=== PATIENT | female | born 1945 | race Caucasian/White ===

== ENCOUNTER 2017-02-20 08:14 | Inpatient (IN) | payer MEDICARE, MEDICAID ==
[2017-02-20] VITALS (9 sets, daily range): BP systolic 148–227; BP diastolic 72–100; PULSE 79–92; RESP 18–20; TEMP 98.1–98.6; O2SAT 90–96
[~2017-02-20] VITALS: Ht 172.7 cm; Wt 134.0 kg
[~2017-02-20 08:14] MED LIST: ALBU0.08 NEB; ASPI-110 PO; DIPH2.5T14 PO; HYDR-3534 PO; K-TA10TA PO; LEVO150T7 PO; OMEP20TA PO; PLAV75TA29 PO; POTA-243 PO; SYMB80AE INH; TIZA2CAP3 PO; TRIA.1%T TOP; TRIA0.5O TOPICAL; ZOFR4TAB PO; ZOFR4TAB3 SL; ZOSTINJ SQ
[2017-02-20] MEDS ORDERED: ONDANSETRON HCL 4 MG/2 ML VIAL IVP ONE (08:45)
[2017-02-20] MEDS ORDERED: LABETALOL HCL 100 MG/20 ML VIAL IV PUSH ONE (08:45)
[2017-02-20] MEDS ORDERED: SODIUM CHLORIDE 0.9% FLUSH 10 ML FLUSH IVF PRN (08:45)
[2017-02-20] MEDS ORDERED: MECLIZINE HCL 25 MG TAB PO ONE (08:45)
[2017-02-20 08:59] LABS: AUTOMATED NEUTROPHIL # 2.6 TH/MM3 (1.8-7.7); BASOPHIL # 0.4 TH/MM3 (0-0.2); BASOPHIL % 6.7 % (0.0-2.0); EOSINOPHIL # 0.2 TH/MM3 (0-0.4); EOSINOPHIL % 3.7 % (0.0-4.0); HEMATOCRIT 43.2 % (35.0-46.0); LYMPH % 35.2 % (9.0-44.0); MEAN CELL VOLUME 84.9 FL (80.0-100.0); MEAN CORPUSCULAR HEMOGLOBIN 29.1 PG (27.0-34.0); MEAN CORPUSCULAR HGB CONC 34.3 % (32.0-36.0); NEUT % 45.4 % (16.0-70.0); PLATELET COUNT 196 TH/MM3 (150-450); RED BLOOD COUNT 5.09 MIL/MM3 (4.00-5.30); RED CELL DISTRIBUTION WIDTH 14.2 % (11.6-17.2); WHITE BLOOD COUNT 5.7 TH/MM3 (4.0-11.0)
[2017-02-20 09:00] LABS: HEMO FLAGS AUTO DIFF
[2017-02-20 09:05] LABS: APTT (PATIENT) 29.1 SEC (24.3-30.1); PROTHROMBIN TIME - PATIENT 10.7 SEC (9.8-11.6)
[2017-02-20 09:19] LABS: ANION GAP 8 MEQ/L (5-15); AST (GOT) 21 U/L (15-37); BICARBONATE 27.3 MEQ/L (21.0-32.0); BLOOD UREA NITROGEN 11 MG/DL (7-18); CHLORIDE 103 MEQ/L (98-107); GLOMERULAR FILTRATION RATE 48 ML/MIN (>89); POTASSIUM 3.6 MEQ/L (3.5-5.1); SODIUM (NA) 138 MEQ/L (136-145)
[2017-02-20 09:23] LABS: ALKALINE PHOSPHATASE 96 U/L (45-117); ALT (GPT) 19 U/L (10-53); TOTAL BILIRUBIN ADULT 0.9 MG/DL (0.2-1.0)
[2017-02-20 09:24] LABS: CREATINE KINASE 39 U/L (26-192)
[2017-02-20] MEDS ORDERED: RESP: ALBUTEROL 2.5 MG/IPRATROPIUM 0.5 MG NEB (SCH) NEB ONE (09:30)
--- NOTE | 2017-02-20 10:03 | RADRPT ---
EXAM DATE/TIME: 02/20/2017 09:15 [facility] COMPARISON: CHEST SINGLE AP, April 30, 2016, 20:13. INDICATIONS : Shortness of breath. MEDICAL HISTORY : Hypertension. Chronic obstructive pulmonary disease. Emphysema. Congestive heart failure. Stroke. Uterine cancer. SURGICAL HISTORY : Angioplasty. Cardiac cath. ENCOUNTER: Initial ACUITY: 1 week PAIN SCORE: 0/10 LOCATION: Bilateral chest FINDINGS: A single view of the chest demonstrates the lungs to be symmetrically aerated without evidence of mas s, infiltrate or effusion. The cardiomediastinal contours are unremarkable. Osseous structures are intact. CONCLUSION: 1. No acute cardiopulmonary disease. Bean Tello MD on February 20, 2017 at 10:01 Board Certified Radiologist. This report was verified electronically.
--- NOTE | 2017-02-20 10:04 | RADRPT ---
EXAM DATE/TIME: 02/20/2017 09:50 [facility] COMPARISON: No previous studies available for comparison. INDICATIONS : Dizziness, headache for 1 day. RADIATION DOSE: 36.04 CTDIvol (mGy) MEDICAL HISTORY : Stroke. Hypothyroidism. Cardiovascular diseaseHypertension, Uterine cancer SURGICAL HISTORY : Appendectomy. Cholecystectomy. ENCOUNTER: Initial ACUITY: 1 day PAIN SCALE: 6/10 LOCATION: cranial TECHNIQUE: Multiple contiguous axial images were obtained of the head. Using automated exposure control and adj ustment of the mA and/or kV according to patient size, radiation dose was kept as low as reasonably a chievable to obtain optimal diagnostic quality images. DICOM format image data is available electro nically for review and comparison. FINDINGS: CEREBRUM: The ventricles are normal. There is minimal periventricular white matter low attenuation. No evidenc e of midline shift, mass lesion, hemorrhage or acute infarction. No extra-axial fluid collections ar e seen. POSTERIOR FOSSA: The cerebellum and brainstem demonstrate no acute finding. The 4th ventricle is midline. The cerebe llopontine angle is unremarkable. EXTRACRANIAL: Visualized sinuses are clear. SKULL: The calvaria is intact. No evidence of skull fracture. CONCLUSION: No acute intracranial abnormality is identified. Abiodun Zavala MD on February 20, 2017 at 10:00 Board Certified Radiologist. This report was verified electronically.
[2017-02-20 10:13] LABS: BANDS 4 % (0-6); BASOPHILS 1 % (0-2); EOSINOPHILS 5 % (0-4); NEUTROPHIL # MANUAL DIFF 3.3 TH/MM3 (1.8-7.7); PLATELET ESTIMATE SMEAR NORMAL (NORMAL); PLATELET MORPHOLOGY NORMAL (NORMAL); POLYS (SEG NEUTROPHILS) 54 % (16-70); SCAN/DIFF FINAL DIFF MANUAL; WBC DIFF SAMPLE 100
[2017-02-20] MEDS ORDERED: SODIUM CHLORID 0.9% 500 ML INJ 500 ML IV ONE (10:45)
[2017-02-20] MEDS ORDERED: METOCLOPRAMIDE INJ 10 MG in SODIUM CHLORIDE 0.9% INJ 50 ML IV ONE (10:45)
--- NOTE | 2017-02-20 11:43 | PD ---
HPI Chief Complaint: Respiratory Distress Time Seen by Provider: 08:35 Travel History International Travel<30 days: No Contact w/Intl Traveler<30days: No Traveled to known affect area: No History of Present Illness HPI Patient is a 71-year-old female brought in by EMS with multiple complaints. She says she has been feeling very dizzy, she is unsteady on her feet. She says she's had some nausea and vomiting due to the dizziness. She says this is been going on for a few days. She also has some shortness of breath. She also complains of weakness her left side. She has history of multiple strokes in the past. She cannot tell me exactly when everything started. She denies any chest pain. PFSH Past Medical History Hx Anticoagulant Therapy: Yes Arthritis: Yes Heart Rhythm Problems: No Cancer: Yes (UTERINE CA) Cardiac Catheterization: Yes Cardiovascular Problems: Yes High Cholesterol: Yes Chest Pain: Yes Congestive Heart Failure: Yes Cerebrovascular Accident: Yes (X 3) Coronary Artery Disease: Yes Diabetes: No Diminished Hearing: No Gastrointestinal Disorders: Yes GERD: Yes Genitourinary: No Heparin Induced Thrombocytopen: No Hypertension: Yes Musculoskeletal: Yes (OSTEOPOROSIS, DEGENERATIVE DISK DISEASE) Neurologic: Yes Psychiatric: No Reproductive: Yes Respiratory: Yes (EMPHYSEMA) Integumentary: Yes (TO BOTH FEET-FISSURES) Myocardial Infarction: Yes Thyroid Disease: Yes (HYPO) ?: Not Menopausal: Yes : 12 Para: 5 Miscarriage: 7 Past Surgical History Appendectomy: Yes Cardiac Surgery: Yes (ANGIOPLASTY X2) Cholecystectomy: Yes Coronary Artery Bypass Graft: No Coronary Stent: Yes Gynecologic Surgery: Yes (UTERINE CA 1998 HYST) Hysterectomy: Yes Other Surgery: Yes Social History Alcohol Use: No Tobacco Use: No Substance Use: No Allergies-Medications (Allergen,Severity, Reaction): Coded Allergies: Codeine (Verified Allergy, Severe, 12/25/16) Contrast Media (Verified Allergy, Severe, 12/25/16) Iodine (Verified Allergy, Severe, 12/25/16) Penicillin (Verified Allergy, Severe, 12/25/16) Shellfish (Verified Allergy, Severe, Anaphylaxis, 02/20/17) Egg Yolk (Verified Allergy, Intermediate, Hives, 02/20/17) Tuna (Verified Allergy, Intermediate, Hives, 02/20/17) Levaquin (Verified Allergy, Unknown, Shortness of Breath, 12/25/16) *MDRO Multi-Drug Resistant Organism (Verified Adverse Reaction, Unknown, ) ESBL+Klebsiella Pneumoniae (urine-04/30/16) Reported Meds & Prescriptions Reported Meds & Active Scripts Active Levothyroxine (Levothyroxine Sodium) 150 Mcg Tab 150 Mcg PO DAILY Triamcinolone Topical 0.5 % Oint 1 Applic TOPICAL BID Diphenoxylate-Atropine 2.5-0.025 Mg Tab 1 Tab PO Q6H PRN Plavix (Clopidogrel Bisulfate) 75 Mg Tab 75 Mg PO DAILY K-Tab (Potassium Chloride) 10 Meq Tab 10 Meq PO BID Omeprazole 20 Mg Tab 20 Mg PO HS Reported Tizanidine (Tizanidine HCl) 2 Mg Cap 2 Mg PO BID Lortab (Hydrocodone-Acetaminophen) 7.5-325 Mg Tab 1 Tab PO TID PRN Symbicort Inh (Budesonide/Formoterol Fumarate) 80-4.5 Mcg/Act Aero 2 Puff INH Q12HR Aspirin 81 (Aspirin) 81 Mg Tabdr 81 Mg PO DAILY Albuterol Neb (Albuterol Sulfate) 2.5 Mg/3 Ml Neb 2.5 Mg NEB Q4HR NEB PRN Review of Systems Except as stated in HPI: all other systems reviewed are Neg General / Constitutional: No: Fever, Chills Eyes: No: Blurred Vision HENT: Positive: Vertigo, No: Headaches Cardiovascular: No: Chest Pain or Discomfort Respiratory: Positive: Shortness of Breath Gastrointestinal: Positive: Nausea, Vomiting, No: Abdominal Pain Musculoskeletal: Positive: Edema Skin: No Rash, No Change in Pigmentation Neurologic: Positive: Weakness Physical Exam Narrative GENERAL: Awake and alert, in no acute distress. SKIN: Focused skin assessment warm/dry. HEAD: Atraumatic. Normocephalic. EYES: Pupils equal and round. No scleral icterus. Extraocular movements intact. ENT: Mucous membranes pink and moist. NECK: Trachea midline. No JVD. CARDIOVASCULAR: Regular rate and rhythm. No murmur appreciated. RESPIRATORY: No accessory muscle use. Decreased breath sounds. Breath sounds equal bilaterally. GASTROINTESTINAL: Abdomen soft, non-tender, nondistended. MUSCULOSKELETAL: No obvious deformities. No clubbing. No cyanosis. No edema. NEUROLOGICAL: Awake and alert. No obvious cranial nerve deficits. Left arm strength 2 out of 5, left leg strength 2 out of 5,. Normal speech. PSYCHIATRIC: Appropriate mood and affect; insight and judgment normal. Data Data Last Documented VS Vital Signs Date Time Temp Pulse Resp B/P Pulse Ox O2 Delivery O2 Flow Rate FiO2 02/20/17 09:20 79 20 153/72 02/20/17 08:53 95 02/20/17 08:20 98.6 Orders Electrocardiogram (02/20/17 08:36) Complete Blood Count With Diff (02/20/17 08:36) Comprehensive Metabolic Panel (02/20/17 08:36) B-Type Natriuretic Peptide (02/20/17 08:36) Ckmb (Isoenzyme) Profile (02/20/17 08:36) Troponin I (02/20/17 08:36) Act Partial Throm Time (Ptt) (02/20/17 08:36) Prothrombin Time / Inr (Pt) (02/20/17 08:36) Urinalysis - C+S If Indicated (02/20/17 08:36) Ua Includes Microscopic (02/20/17 08:36) Chest, Single Ap (02/20/17 08:36) Ct Brain W/O Iv Contrast(Rout) (02/20/17 08:36) Ecg Monitoring (02/20/17 08:36) Iv Access Insert/Monitor (02/20/17 08:36) Oximetry (02/20/17 08:36) Meclizine (Antivert) (02/20/17 08:45) Ondansetron Inj (Zofran Inj) (02/20/17 08:45) Sodium Chloride 0.9% Flush (Ns Flush) (02/20/17 08:45) Labetalol Inj (Trandate Inj) (02/20/17 08:45) Albuterol-Ipratropium Neb (Duoneb Neb) (02/20/17 09:30) Metoclopramide Inj (Reglan Inj) (02/20/17 10:45) Sodium Chlorid 0.9% 500 Ml Inj (Ns 500 M (02/20/17 10:45) Mra Carotids W Contrast (02/20/17 ) Mra Brain W/O Contrast (Cow) (02/20/17 ) Admit Order (Ed Use Only) (02/20/17 ) Mri Brain W/O Contrast (02/20/17 ) Labs Laboratory Tests Test 02/20/17 08:40 White Blood Count 5.7 TH/MM3 Red Blood Count 5.09 MIL/MM3 Hemoglobin 14.8 GM/DL Hematocrit 43.2 % Mean Corpuscular Volume 84.9 FL Mean Corpuscular Hemoglobin 29.1 PG Mean Corpuscular Hemoglobin 34.3 % Concent Red Cell Distribution Width 14.2 % Platelet Count 196 TH/MM3 Mean Platelet Volume 8.3 FL Neutrophils (%) (Auto) 45.4 % Lymphocytes (%) (Auto) 35.2 % Monocytes (%) (Auto) 9.0 % Eosinophils (%) (Auto) 3.7 % Basophils (%) (Auto) 6.7 % Neutrophils # (Auto) 2.6 TH/MM3 Lymphocytes # (Auto) 2.0 TH/MM3 Monocytes # (Auto) 0.5 TH/MM3 Eosinophils # (Auto) 0.2 TH/MM3 Basophils # (Auto) 0.4 TH/MM3 CBC Comment AUTO DIFF Differential Total Cells 100 Counted Neutrophils % (Manual) 54 % Band Neutrophils % 4 % Lymphocytes % 32 % Monocytes % 4 % Eosinophils % 5 % Basophils % 1 % Neutrophils # (Manual) 3.3 TH/MM3 Differential Comment FINAL DIFF MANUAL Platelet Estimate NORMAL Platelet Morphology Comment NORMAL Red Cell Morphology Comment NORMAL Prothrombin Time 10.7 SEC Prothromb Time International 1.0 RATIO Ratio Activated Partial 29.1 SEC Thromboplast Time Sodium Level 138 MEQ/L Potassium Level 3.6 MEQ/L Chloride Level 103 MEQ/L Carbon Dioxide Level 27.3 MEQ/L Anion Gap 8 MEQ/L Blood Urea Nitrogen 11 MG/DL Creatinine 1.11 MG/DL Estimat Glomerular Filtration 48 ML/MIN Rate Random Glucose 121 MG/DL Hemoglobin A1c 5.5 % Calcium Level 10.3 MG/DL Total Bilirubin 0.9 MG/DL Aspartate Amino Transf 21 U/L (AST/SGOT) Alanine Aminotransferase 19 U/L (ALT/SGPT) Alkaline Phosphatase 96 U/L Total Creatine Kinase 39 U/L Troponin I LESS THAN 0.02 NG/ML B-Type Natriuretic Peptide 76 PG/ML Total Protein 7.2 GM/DL Albumin 3.9 GM/DL Triglycerides Level 110 MG/DL Cholesterol Level 195 MG/DL LDL Cholesterol 107 MG/DL HDL Cholesterol 65.7 MG/DL Cholesterol/HDL Ratio 2.96 RATIO [facility] Decision Making Medical Screen Exam Complete: Yes Emergency Medical Condition: Yes Medical Record Reviewed: Yes Interpretation(s) ECG shows normal sinus rhythm, no ST elevation or depression Differential Diagnosis Stroke versus electrolyte abnormality versus sepsis Narrative Course Patient is a 71-year-old female comes in with multiple complaints. Exam shows weakness on the left side that appears to be new, however onset is unknown. CT head performed shows no acute abnormalities. IV established, labs sent. Patient connected to a cardiac technician. Patient given labetalol blood pressure. Given meclizine, given Reglan, given Zofran. She is reports improvement of her dizziness. Dr. Wall of neurology consulted, who suggests. Workup. MRI and MRA of the brain and carotid arteries ordered. Patient will be admitted for further management. Diagnosis Primary Impression: Stroke Qualified Code: I63.9 - Cerebrovascular accident (CVA), unspecified mechanism Additional Impression: Vertigo Admitting Information Admitting Physician Requests: Admit Condition: Stable Eunice Mosquera MD Feb 20, 2017 11:43
--- NOTE | 2017-02-20 11:58 | HHI.HP ---
[facility] Service Family Medicine Primary Care Physician Katelynn Torrez MD Admission Diagnosis CVA, COPD Diagnoses: International Travel<30 Days: No Contact w/Intl Traveler<30days: No Known Affected Area: No History of Present Illness 71 year old female with past history of ischemic stroke x3, COPD, hypothyroidism , HTN presented to the ED for left sided weakness. Patient states that she has been feeling dizzy for the past few weeks, occasionally feeling as though the room was spinning around her. At 2 AM this morning (02/20/17) the patient states the spinning was so bad it took 15 minutes to walk from the bed to bathroom. She also noted at that time a change in speech pattern. cold sweats, nausea, dizziness (everything spinning). She took an aspirin and went back to bed. Waking up this morning she continued to have the symptoms, but also noted weakness in her left arm and leg. She did not notice any facial droop or slurred words. She does not a slight change in her speech, something she is hypervigilant about, because she had to relearn how to speak following her last stroke. She reports no vomiting, fall, LOC, fever, change in urinary habits, abdominal pain, chest pain, blurry vision, diplopia. She has had diarrhea which was black for past couple days, amodium AD taken. Currently has some confusion, headache in lower base of head which started this morning, difficulty speaking, weakness on left side. Review of Systems Constitutional: COMPLAINS OF: Diaphoretic episodes, Chills, Dizziness, DENIES : Fatigue, Fever, Weight gain, Weight loss Endocrine: DENIES: Heat/cold intolerance, Polydipsia, Polyuria Eyes: DENIES: Blurred vision, Diplopia, Eye inflammation, Eye pain, Vision loss , Photosensitivity, Double Vision Ears, nose, mouth, throat: DENIES: Nasal discharge, Throat pain, Hoarseness, Running Nose, Epistaxis, Sinus Pain Respiratory: COMPLAINS OF: Wheezing ([place]), DENIES: Apneas, Cough, Snoring , Hemoptysis, Shortness of breath Cardiovascular: DENIES: Chest pain, Palpitations, Syncope, Dyspnea on Exertion , PND Gastrointestinal: COMPLAINS OF: Black stools, DENIES: Abdominal pain, Bloody stools, Constipation, Nausea, Vomiting Genitourinary: DENIES: Urinary frequency, Urinary incontinence, Urgency, Dysuria, Nocturia Musculoskeletal: DENIES: Joint pain, Muscle aches, Stiffness, Joint Swelling, Back pain, Neck pain Integumentary: DENIES: Pruritus, Rash Hematologic/lymphatic: DENIES: Bruising Immunologic/allergic: DENIES: Eczema Neurologic: COMPLAINS OF: Abnormal gait, Headache, Localized weakness, Speech Problems, Poor Balance, DENIES: Paresthesias, Seizures, Tremor Psychiatric: COMPLAINS OF: Confusion Past Family Social History Past Medical History Past medical, surgical, family and social history obtained from EMR and confirmed with patient COPD Ischemic Stroke x 3 1990 Acute VT CAD - no longer on statin due to side effects Hypothyroidism HTN GERD IBS- predominant diarrhea "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" -- followed by pain management 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 , 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, 1 ectopic requiring 5 Vaginal deliveries, Full Term, LMP: 1997 Past Surgical History 1986, 2010 - Cardiac Catheterization x 2 (1986, 2010) - no stents placed 1998 Hysterectomy (uterus, ovaries) for uterine cancer - unsure if cervix was removed as well 1964 - Cholecystectomy Allergies: Coded Allergies: Codeine (Verified Allergy, Severe, 12/25/16) Contrast Media (Verified Allergy, Severe, 12/25/16) Iodine (Verified Allergy, Severe, 12/25/16) Penicillin (Verified Allergy, Severe, 12/25/16) Shellfish (Verified Allergy, Severe, Anaphylaxis, 02/20/17) Egg Yolk (Verified Allergy, Intermediate, Hives, 02/20/17) Tuna (Verified Allergy, Intermediate, Hives, 02/20/17) Levaquin (Verified Allergy, Unknown, Shortness of Breath, 12/25/16) *MDRO Multi-Drug Resistant Organism (Verified Adverse Reaction, Unknown, ) ESBL+Klebsiella Pneumoniae (urine-04/30/16) Active Ordered Medications Current Medications Medications (Trade) Dose Ordered Sig/Mary Route Start Time Stop Time Status Last Admin (NS Flush) 2 ml UNSCH PRN IVF 02/20/17 08:45 (NS Flush) 2 ml UNSCH PRN IV FLUSH 02/20/17 12:30 (NS Flush) 2 ml BID IV FLUSH 02/20/17 21:00 (Zofran Inj) 4 mg Q6H PRN IVP 02/20/17 12:30 (Narcan Inj) 0.4 mg UNSCH PRN IV 02/20/17 12:30 (Symbicort 80-4.5 Mcg Inh) 2 puff Q12HR INH 02/20/17 12:45 (Plavix) 75 mg DAILY PO 02/21/17 09:00 Levothyroxine Sodium 150 mcg 150 mcg DAILY PO 02/21/17 09:00 (NS 1000 ml Inj) 1,000 ml @ 75 mls/hr [id number] IV 02/20/17 14:49 02/20/17 15:23 Family History FMHx Mother, unknown - patient adopted Father, unknown - patient adopted Social History Lives in [place]. Retired and on disability. 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 SKIN: No rashes, ecchymoses or lesions. Cool and dry. HEAD: Atraumatic. Normocephalic. No temporal or scalp tenderness. EYES: Pupils equal round and reactive. Extraocular motions intact. No scleral icterus. No injection or drainage. ENT: Nose without bleeding, purulent drainage or septal hematoma. Throat without erythema, tonsillar hypertrophy or exudate. Uvula midline. Airway patent. NECK: Trachea midline. No JVD or lymphadenopathy. Supple, nontender, no meningeal signs. CARDIOVASCULAR: Regular rate and rhythm without murmurs, gallops, or rubs. RESPIRATORY: Clear to auscultation. Breath sounds equal bilaterally. No wheezes , rales, or rhonchi. GASTROINTESTINAL: Abdomen soft, non-tender, nondistended. No hepato-splenomegaly , or palpable masses. No guarding. MUSCULOSKELETAL: Extremities without clubbing, cyanosis, or edema. No joint tenderness, effusion, or edema noted. No calf tenderness. NEUROLOGICAL: Awake and alert. Cranial nerves II through XII intact. Motor and sensory grossly within normal limits.5/5 in RUE, 4/5 in LUE, 5/5 in RLE, 3/5 in LLE. Normal speech. Laboratory Laboratory Tests Test 02/20/17 08:40 White Blood Count 5.7 Red Blood Count 5.09 Hemoglobin 14.8 Hematocrit 43.2 Mean Corpuscular Volume 84.9 Mean Corpuscular Hemoglobin 29.1 Mean Corpuscular Hemoglobin 34.3 Concent Red Cell Distribution Width 14.2 Platelet Count 196 Mean Platelet Volume 8.3 Neutrophils (%) (Auto) 45.4 Lymphocytes (%) (Auto) 35.2 Monocytes (%) (Auto) 9.0 Eosinophils (%) (Auto) 3.7 Basophils (%) (Auto) 6.7 Neutrophils # (Auto) 2.6 Lymphocytes # (Auto) 2.0 Monocytes # (Auto) 0.5 Eosinophils # (Auto) 0.2 Basophils # (Auto) 0.4 CBC Comment AUTO DIFF Differential Total Cells 100 Counted Neutrophils % (Manual) 54 Band Neutrophils % 4 Lymphocytes % 32 Monocytes % 4 Eosinophils % 5 Basophils % 1 Neutrophils # (Manual) 3.3 Differential Comment FINAL DIFF MANUAL Platelet Estimate NORMAL Platelet Morphology Comment NORMAL Red Cell Morphology Comment NORMAL Prothrombin Time 10.7 Prothromb Time International 1.0 Ratio Activated Partial 29.1 Thromboplast Time Sodium Level 138 Potassium Level 3.6 Chloride Level 103 Carbon Dioxide Level 27.3 Anion Gap 8 Blood Urea Nitrogen 11 Creatinine 1.11 Estimat Glomerular Filtration 48 Rate Random Glucose 121 Calcium Level 10.3 Total Bilirubin 0.9 Aspartate Amino Transf 21 (AST/SGOT) Alanine Aminotransferase 19 (ALT/SGPT) Alkaline Phosphatase 96 Total Creatine Kinase 39 Troponin I LESS THAN 0.02 B-Type Natriuretic Peptide 76 Total Protein 7.2 Albumin 3.9 Result Diagram: 02/20/1783902/20/17839 Imaging Last [address] 02/20/17835 Signed Impressions: Service Date/Time: February 09:50 - CONCLUSION: No acute intracranial abnormality is identified. Abiodun Zavala MD Chest X-Ray 02/20/17835 Signed Impressions: Service Date/Time: February 09:15 - CONCLUSION: 1. No acute cardiopulmonary disease. Bean Tello MD Assessment and Plan Assessment and Plan 71 year old female with past history of CVA x3 who presented with acute onset left sided weakness. Head CT shows no acute changes, awaiting MRI Code Status Full Problem List: (1) Left-sided weakness Status: Acute Plan: History of 3 strokes, with self reported change in speech, although seemingly normal on exam -Neurology consulted - CT head without acute changes - F/U MRI - ASA 325 given - F/U A1C - F/U Speech, OT, PT (2) COPD (chronic obstructive pulmonary disease) Status: Acute Plan: - symbicort Q12 - Duoneb treatments Q6 - Albuterol Q2 PRN (3) Hypothyroidism Status: Acute Plan: History of hypothyroidism - Continue home medications - Synthroid 150mcg (4) Hypercholesteremia Status: Acute Plan: Currently has hypercholesterolemia on labs - Will not start on statin at this time due to patient reported adverse reaction to statins (5) FEN Status: Acute Plan: Fluids - Maintenance fluids Electrolytes - Monitor and correct as needed Nutrition - Currently NPO PPX -On SCDS, will consider chemical PPX following MRI Physician Certification 2 Midnight Certification Type: Admission for Inpatient Services Order for Inpatient Services The services are ordered in accordance with Medicare regulations or non- Medicare payer requirements, as applicable. In the case of services not specified as inpatient-only, they are appropriately provided as inpatient services in accordance with the 2-midnight benchmark. Estimated LOS (days): 2 2 days is the estimated time the patient will need to remain in the hospital, assuming treatment plan goals are met and no additional complications. Post-Hospital Plan: Not yet determined Aden Patino MD R1 Feb 20, 2017 11:58
[2017-02-20 12:14] LABS: BACTERIA, URINE MANY /hpf; BLOOD, URINE TRACE (NEG); COMMENT (UR) CULTURE INDICATED; CULTURE IF INDICATED CULTURE INDICATED; GLUCOSE,URINE NEG (NEG); HYALINE CAST, URINE 2 /lpf (RARE); KETONE, URINE NEG (NEG); NITRITE,URINE POS (NEG); PH, URINE 5.5 (5.0-8.5); SQUAMOUS EPITHELIAL CELL URINE 1 /hpf (0-5); URINE COLOR YELLOW (YELLW/STRAW)
[2017-02-20] MEDS ORDERED: SODIUM CHLOR 0.9% 1000 ML INJ 1,000 ML IV SCH (12:24)
[2017-02-20] MEDS ORDERED: ONDANSETRON HCL 4 MG/2 ML VIAL IVP PRN (12:30)
[2017-02-20] MEDS ORDERED: NALOXONE HCL 0.4 MG/ML AMP IV PRN (12:30)
[2017-02-20] MEDS ORDERED: SODIUM CHLORIDE 0.9% FLUSH 10 ML FLUSH IV FLUSH PRN (12:30)
[2017-02-20] MEDS ORDERED: LORazepam 2 MG/ML VIAL IV PUSH ONE (12:45)
[2017-02-20] MEDS ORDERED: RESP: ALBUTEROL 2.5 MG/3 ML NEB (PRN) NEB (12:45)
[2017-02-20] MEDS ORDERED: ASPIRIN 81 MG CHEW TAB CHEW ONE (12:45)
[2017-02-20 13:56] LABS: HDL CHOLESTEROL 65.7 MG/DL (40.0-60.0); LDL CHOLESTEROL 107 MG/DL (0-99)
[2017-02-20] MEDS: SODIUM CHLOR 0.9% 1000 ML INJ 1,000 ML IV SCH (15:23)
[2017-02-20] MEDS: RESP: ALBUTEROL 2.5 MG/IPRATROPIUM 0.5 MG NEB (SCH) NEB ×2 (16:08→20:47)
[2017-02-20 16:34] LABS: HEMOGLOBIN A1a 0.8 %; HEMOGLOBIN A1b 1.8 %; HEMOGLOBIN Ao 85.4 %; HEMOGLOBIN P3 3.7 %
--- NOTE | 2017-02-20 17:02 | MB ---
cc: [facility] DATE OF CONSULTATION 02/20/17 HISTORY OF PRESENT ILLNESS A 71-year-old right-handed woman with a history of hypertension, angioplasty, atrial fibrillation remotely on Plavix and a baby aspirin a day, COPD, hypothyroidism, GERD, uterine cancer many years ago. She tells me she had three strokes one in 1997 with left-sided weakness, another in 1998 and 2000 after daughter , all with left-sided weakness from which she has had 75% recovery. For the last week or two, she has felt some imbalance and vertigo on and off, some increased weakness in the left leg, a headache, some chest pain also. This morning she woke up and had significant vertigo and some tingling in the left arm which was before the vertigo had started and then she came into the hospital. REVIEW OF SYSTEMS She denies any diabetes, hypercholesterolemia, coronary artery bypass graft, renal or hepatic disease, lupus, ulcer, cancer. known seizure. SOCIAL HISTORY Not a smoker or drinker, lives with her son. FAMILY HISTORY Negative for cancer seizure, stroke. ALLERGIES CODEINE CONTRAST IODINE PENICILLIN LEVAQUIN. MEDICATIONS 1. Thyroid medicine 2. Diphenoxylate 3. Plavix 4. Potassium 5. Omeprazole 6. Tizanidine 7. Lortab 8. Symbicort 9. Aspirin 81 10. Nebulizers PHYSICAL EXAMINATION Afebrile, 89, 18, 169/81. Highest blood pressure is 227/100. NECK: There were no carotid bruits. HEART: Regular rhythm. I did not detect a murmur. She is somewhat obese. Pupils are equal. Visual harden are full. Extraocular movements intact without nystagmus. Face is symmetric, normal sensation. Tongue was midline. There was a minimal left drift. She had a little bit of a tremor in the left upper extremity but best strength on the left upper and lower extremities was normal as it was on the right upper and lower extremities. Toes are downgoing bilaterally. DTRs are trace throughout. Pinprick was intact throughout except with decrease in the feet bilaterally slightly as was vibratory sense in the left foot a little decreased. She is not ataxic on [id number] or toe to finger, but she is not able to lift the left leg quite as well off the bed as the right leg. LABORATORY DATA CBC is normal. She had a history of abnormal ABG about a year ago. Had a pH of 7.31, pAO2 of 30. Basic metabolic profile is normal. Lets normal. CPK, troponin, albumin normal. LDL is 107. B12 was normal back in 2008. TSH was normal at that time. UA on this admission - large amount of leuko esterase, 27 white cells. Coags normal. IMAGING STUDIES MRI is pending. CAT scan of the brain read as negative. Review of those films - I do not see any major abnormality. IMPRESSION Vertigo possibly peripheral vestibulopathy. She has had some chest pain, however, and a history of CAD. We will have cardiology see her. We will check the MRI of the brain and MRA of the neck and [place] to look for any vertebral basilar stenosis. I thought overall she looked well neurologically. Could just be a peripheral vestibulopathy. We will see what we come up what with the workup. It looks like she might have a UTI that should be treated and the blood pressure should be treated also depending on if the MR is negative. We should treat her UTI. Her cholesterol is up a bit and the med team could start a statin. MD ANNALISA Correa/ /2:44 PM /4:44 PM
--- NOTE | 2017-02-20 18:31 | EKG ---
Date Performed: 02/20/2017 Time Performed: 08:47:46 PTAGE: 71 years EKG: Sinus rhythm When compared to previous tracing, the patient is no longer Tachycardic. NORMAL ECG PREVIOUS TRACING : 04/30/2016 19.31 DOCTOR: Abby Monge Interpretating Date/Time 02/20/2017 18:29:31
[2017-02-20] MEDS ORDERED: GADODIAMIDE PF 287 MG/ML 20 ML VIAL (for RAD MRI) IV ONE (18:57)
--- NOTE | 2017-02-20 20:57 | RADRPT ---
EXAM DATE/TIME: 02/20/2017 18:39 [facility] COMPARISON: No previous studies available for comparison. INDICATIONS : CVA. MEDICAL HISTORY : Chronic obstructive pulmonary disease. Hypertension. SURGICAL HISTORY : Hysterectomy. Cholecystectomy. ENCOUNTER: Initial ACUITY: 1 day PAIN SCORE: 0/10 LOCATION: head. TECHNIQUE: Multiplanar, multisequence MRI of the brain was performed without contrast. FINDINGS: CEREBRUM: The ventricles are normal for age. No evidence of midline shift, mass lesion, hemorrhage or acute in farction. No extraaxial fluid collections are seen. The pituitary gland and suprasellar cistern are normal in configuration. WHITE MATTER: No significant signal abnormalities are seen in the white matter. POSTERIOR FOSSA: The cerebellum and brainstem are intact. The 4th ventricle is midline. The cerebellopontine angle is unremarkable. The cerebellar tonsils are normal in position. DIFFUSION IMAGING: No focal areas of restricted diffusion are seen. No evidence of acute infarction. EXTRACRANIAL: The visualized portions of the orbits and paranasal sinuses are unremarkable. CONCLUSION: Age-appropriate atrophy. No acute findings. Raymon Spain MD on February 20, 2017 at 20:53 Board Certified Radiologist. This report was verified electronically.
--- NOTE | 2017-02-20 20:59 | RADRPT ---
EXAM DATE/TIME: 02/20/2017 18:39 [facility] COMPARISON: No previous studies available for comparison. INDICATIONS : Cephalgia. Vertigo. MEDICAL HISTORY : Chronic obstructive pulmonary disease. Hypertension. SURGICAL HISTORY : Cholecystectomy. Hysterectomy. ENCOUNTER: Initial ACUITY: 1 day PAIN SCORE: 3/10 LOCATION: Head. Please note a normal MRA of the brain does not entirely exclude the possibility of a small aneurysm, nor the possibility of distal intracranial vessel disease. TECHNIQUE: 3D time of flight MRA was performed. Source images, multiplanar STS MIP, and 3D volume MIP reconstru ctions were reviewed. FINDINGS: There is excellent visualization of the major intracranial arteries out to the second-order branch ve ssels. There is no evidence for aneurysm, vessel truncation or stenosis, and no evidence for vascula r malformation. Flow is seen in the anterior communicating artery. No flow seen in either PCOM. CONCLUSION: Negative MRA of the [place]. Raymon Spain MD on February 20, 2017 at 20:56 Board Certified Radiologist. This report was verified electronically.
[2017-02-20] MEDS ORDERED: SULFAMETHOX IV SCH ×2 (21:00)
[2017-02-20] MEDS ORDERED: DEXTROSE 5% IV SCH ×2 (21:00)
[2017-02-20] MEDS: BUDESONIDE-FORMOTEROL 80/4.5 MCG INHALER INH SCH (21:00)
[2017-02-20] MEDS ORDERED: TRIMETHOPRIM IV SCH ×2 (21:00)
[2017-02-20] MEDS ORDERED: WATE IV SCH ×2 (21:00)
--- NOTE | 2017-02-20 21:00 | RADRPT ---
EXAM DATE/TIME: 02/20/2017 18:39 [facility] COMPARISON: No previous studies available for comparison. INDICATIONS : Stroke. Headache and vertigo. CONTRAST: 20 cc Omniscan (gadodiamide) IV MEDICAL HISTORY : Chronic obstructive pulmonary disease. Hypertension. SURGICAL HISTORY : Cholecystectomy. Hysterectomy. ENCOUNTER: Initial ACUITY: 1 day PAIN SCORE: 6/10 LOCATION: Head. Percent stenosis is calculated using the diameter of the stenotic region over the diameter of the nor mal distal internal carotid artery. TECHNIQUE: Bolus infused MRA of the extracranial circulation was performed using a neurovascular coil. Post pro cessing was performed including rotating subvolume maximum intensity projections of each carotid beau ry, rotating full volume maximum intensity projections of both carotid arteries, sagittal and coronal sliding thin slab reformations of each carotid artery, and left oblique sliding thin slab reformatio n through the aortic arch to include the origin of the arch branch vessels. FINDINGS: AORTIC ARCH: There is a three vessel origin of the great vessels from the aorta. No evidence of ostial narrowing. RIGHT CAROTID: The common carotid artery is intact. The carotid bulb has a normal configuration without ulceration or narrowing. The internal carotid artery lumen is smooth without stenosis. The external carotid ar camron is intact. LEFT CAROTID: The common carotid artery is intact. The carotid bulb has a normal configuration without ulceration or narrowing. The internal carotid artery lumen is smooth without stenosis. The external carotid ar camron is intact. VERTEBRALS: The vertebral arteries have a symmetric diameter. No stenotic lesions are seen. CONCLUSION: Negative MRA of the carotids. Raymon Spain MD on February 20, 2017 at 20:57 Board Certified Radiologist. This report was verified electronically.
[2017-02-20] MEDS ORDERED: hydrALAZINE HCL 20 MG/ML VIAL IV PRN (21:30)
[2017-02-20] MEDS: CARVEDILOL 6.25 MG TAB PO SCH (22:31)
[2017-02-20] MEDS: SODIUM CHLORIDE 0.9% FLUSH 10 ML FLUSH IV FLUSH SCH (22:31)
[2017-02-20] MEDS: HEPARIN SODIUM - SQ 10,000 UNITS/ML VIAL SQ SCH (22:32)
[2017-02-21] VITALS (8 sets, daily range): BP systolic 131–180; BP diastolic 69–86; PULSE 71–92; RESP 16–20; TEMP 97.6–98.9; O2SAT 92–96
[2017-02-21] MEDS: SODIUM CHLOR 0.9% 1000 ML INJ 1,000 ML IV SCH ×4 (00:24→18:09)
[2017-02-21] MEDS: RESP: ALBUTEROL 2.5 MG/IPRATROPIUM 0.5 MG NEB (SCH) NEB ×2 (07:39→12:29)
--- NOTE | 2017-02-21 07:56 | HHI.PR ---
Subjective Remarks sr Objective Vital Signs Date Time Temp Pulse Resp B/P Pulse Ox O2 Delivery O2 Flow Rate FiO2 02/21/17 07:41 96 02/21/17 04:47 98.9 89 20 180/86 95 02/21/17 01:38 98.2 86 18 154/72 93 02/20/17 21:11 98.1 91 20 148/79 90 02/20/17 20:49 96 21 02/20/17 16:00 98.1 91 18 168/78 92 02/20/17 13:51 98.2 89 18 169/81 94 02/20/17 13:00 92 19 179/94 95 Nasal Cannula 2 02/20/17 12:00 84 18 183/94 94 Nasal Cannula 2 02/20/17 09:20 79 20 153/72 02/20/17 08:53 95 02/20/17 08:53 84 20 188/88 02/20/17 08:20 98.6 87 20 227/100 95 I/O 02/20/17 02/20/17 02/20/17 02/21/17 02/21/17 02/21/17 07:00 15:00 23:00 07:00 15:00 23:00 Intake Total 75 ml 150 ml Balance 75 ml 150 ml Intake IV Total 75 ml 150 ml # Voids 1 2 # Bowel Movements 0 Result Diagram: 02/20/17 0840 02/20/17 0840 Objective Remarks awake alert nl speech moves all ok Assessment and Plan Assessment and Plan imp no more vertigo mri/a/a nl mastoids ok too ua pos on abt she will call my office if any more vertigo plan is: needs STATIN cards consult dr gomez pend echo pend she has hx afib and with hx of 3 cva i would rec change to anticoagulation if afib hx can be verified oob ok neuro olson if above all addressed could Davidson Conley MD Feb 21, 2017 07:56
[2017-02-21] MEDS: CARVEDILOL 6.25 MG TAB PO SCH (08:29)
[2017-02-21] MEDS: HEPARIN SODIUM - SQ 10,000 UNITS/ML VIAL SQ SCH (08:30)
[2017-02-21] MEDS: SODIUM CHLORIDE 0.9% FLUSH 10 ML FLUSH IV FLUSH SCH (08:31)
[2017-02-21] MEDS: BUDESONIDE-FORMOTEROL 80/4.5 MCG INHALER INH SCH (08:31)
[2017-02-21] MEDS ORDERED: LEVOTHYROXINE SODIUM 150 MCG TAB PO SCH (09:00)
[2017-02-21] MEDS ORDERED: SULFAMETHOXAZOLE-TRIMETHOPRIM DS 800-160 MG TAB PO SCH (09:00)
[2017-02-21] MEDS ORDERED: CLOPIDOGREL 75 MG TAB PO SCH (09:00)
--- NOTE | 2017-02-21 09:29 | PD.CONS ---
HPI Service Cardiology Consult Requested By Dr. Wall Reason for Consult CP, Questionable history of Afib Primary Care Physician Katelynn Torrez MD History of Present Illness Mrs. Harper is a pleasant 71 year old who was admitted with complaints of left sided weakness and dizziness. She has a history of CVA x 3, COPD, hypertension , hyperlipidemia and PA in 1990. MRI negative for CVA. Cardiac catheterization in 2010 showed moderate artherosclerosis. She was last seen in our office in 2012. At that time outpatient telemetry did not reveal any atrial fibrillation, underlying rhythm was sinus with PACs. She has complaints of sharp shooting pains occasionally across her chest usually noticed at rest. She denies any chest pain with exertion. She does have exertional shortness of breath which she notes as being stable over the years. She uses a walker or wheelchair due to LE weakness and does not do much from a functional standpoint. She is currently sitting up in the chair. Denies any weakness, dizziness, chest pain, shortness of breath. Review of Systems Neurologic: COMPLAINS OF: Tingling or numbness, Memory problems, Poor Balance, Stroke symptoms (left sided weakness, change in speech, dizziness) Musculoskeletal: COMPLAINS OF: Joint pain, Muscle pain, Limited range of motion , Back pain (lower extremity weakness) Past Family Social History Allergies: Coded Allergies: Codeine (Verified Allergy, Severe, 12/25/16) Contrast Media (Verified Allergy, Severe, 12/25/16) Iodine (Verified Allergy, Severe, 12/25/16) Penicillin (Verified Allergy, Severe, 12/25/16) Shellfish (Verified Allergy, Severe, Anaphylaxis, 02/20/17) Egg Yolk (Verified Allergy, Intermediate, Hives, 02/20/17) Tuna (Verified Allergy, Intermediate, Hives, 02/20/17) Levaquin (Verified Allergy, Unknown, Shortness of Breath, 12/25/16) *MDRO Multi-Drug Resistant Organism (Verified Adverse Reaction, Unknown, ) ESBL+Klebsiella Pneumoniae (urine-04/30/16) Past Medical History CVA x 3 COPD PA - 1990 Hypertension Hyperlipidemia Past Surgical History Cholecystectomy Hysterectomy Reported Medications Reported Meds & Active Scripts Active Levothyroxine (Levothyroxine Sodium) 150 Mcg Tab 150 Mcg PO DAILY Triamcinolone Topical 0.5 % Oint 1 Applic TOPICAL BID Diphenoxylate-Atropine 2.5-0.025 Mg Tab 1 Tab PO Q6H PRN Plavix (Clopidogrel Bisulfate) 75 Mg Tab 75 Mg PO DAILY K-Tab (Potassium Chloride) 10 Meq Tab 10 Meq PO BID Omeprazole 20 Mg Tab 20 Mg PO HS Reported Tizanidine (Tizanidine HCl) 2 Mg Cap 2 Mg PO BID Lortab (Hydrocodone-Acetaminophen) 7.5-325 Mg Tab 1 Tab PO TID PRN Symbicort Inh (Budesonide/Formoterol Fumarate) 80-4.5 Mcg/Act Aero 2 Puff INH Q12HR Aspirin 81 (Aspirin) 81 Mg Tabdr 81 Mg PO DAILY Albuterol Neb (Albuterol Sulfate) 2.5 Mg/3 Ml Neb 2.5 Mg NEB Q4HR NEB PRN Active Ordered Medications Current Medications Medications (Trade) Dose Ordered Sig/Mary Route Start Time Stop Time Status Last Admin (NS Flush) 2 ml UNSCH PRN IVF 02/20/17 08:45 (NS Flush) 2 ml UNSCH PRN IV FLUSH 02/20/17 12:30 (NS Flush) 2 ml BID IV FLUSH 02/20/17 21:00 02/21/17 08:31 (Zofran Inj) 4 mg Q6H PRN IVP 02/20/17 12:30 (Narcan Inj) 0.4 mg UNSCH PRN IV 02/20/17 12:30 (Symbicort 80-4.5 Mcg Inh) 2 puff Q12HR INH 02/20/17 12:45 (Plavix) 75 mg DAILY PO 02/21/17 09:00 02/21/17 08:29 Levothyroxine Sodium 150 mcg 150 mcg DAILY PO 02/21/17 09:00 02/21/17 08:29 (NS 1000 ml Inj) 1,000 ml @ 170 mls/hr Q5H53M IV 02/20/17 14:49 02/21/17 05:34 (Bactrim Ds 800-160 Mg) 1 tab Q12HR PO 02/21/17 09:00 02/21/17 08:30 (Coreg) 6.25 mg Q12HR PO 02/20/17 21:30 02/21/17 08:29 (Apresoline Inj) 10 mg Q6H PRN IV 02/20/17 21:30 (Heparin Inj) 5,000 units Q12H SQ 02/20/17 22:00 02/21/17 08:30 Family History Unknown - adopted Social History previous smoker - 36 years 1-2 ppd. Quit 1997 Physical Exam Vital Signs Vital Signs Date Time Temp Pulse Resp B/P Pulse Ox O2 Delivery O2 Flow Rate FiO2 02/21/17 08:46 97.8 92 16 131/69 92 02/21/17 07:41 96 02/21/17 04:47 98.9 89 20 180/86 95 02/21/17 01:38 98.2 86 18 154/72 93 02/20/17 21:11 98.1 91 20 148/79 90 02/20/17 20:49 96 21 02/20/17 16:00 98.1 91 18 168/78 92 02/20/17 13:51 98.2 89 18 169/81 94 02/20/17 13:00 92 19 179/94 95 Nasal Cannula 2 02/20/17 12:00 84 18 183/94 94 Nasal Cannula 2 02/20/17 09:20 79 20 153/72 Physical Exam GENERAL: Awake, alert. No distress. SKIN: Warm and dry. HEAD: Atraumatic. Normocephalic. EYES: Pupils equal and round. No scleral icterus. No injection or drainage. ENT: No nasal bleeding or discharge. Mucous membranes pink and moist. NECK: Trachea midline. No JVD. CARDIOVASCULAR: Regular rate and rhythm. No murmurs, rubs or gallops. RESPIRATORY: No accessory muscle use. Clear to auscultation. Breath sounds equal bilaterally. GASTROINTESTINAL: Abdomen soft, obese, non-tender, nondistended. Hepatic and splenic margins not palpable. MUSCULOSKELETAL: Extremities without clubbing, cyanosis, or edema. No obvious deformities. NEUROLOGICAL: Awake and alert. No obvious cranial nerve deficits. Motor grossly within normal limits. Normal speech. PSYCHIATRIC: Appropriate mood and affect; insight and judgment normal. Laboratory Laboratory Tests Test 02/20/17 11:45 Urine Color YELLOW Urine Turbidity HAZY Urine pH 5.5 Urine Specific [place] 1.024 Urine Protein TRACE Urine Glucose (UA) NEG Urine Ketones NEG Urine Occult Blood TRACE Urine Nitrite POS Urine Bilirubin NEG Urine Urobilinogen LESS THAN 2.0 Urine Leukocyte Esterase LARGE Urine RBC 5 Urine WBC 27 Urine Squamous Epithelial 1 Cells Urine Bacteria MANY Urine Hyaline Casts 2 Microscopic Urinalysis Comment CULTURE INDICATED Date/Time Procedure Status Source Growth 02/20/17 11:45 Urine Culture Received Urine Clean Catch Pending Result Diagram: 02/20/17 0840 02/20/17 0840 Assessment and Plan Assessment and Plan Vertigo/Vestibulopathy CAD - S/P PA 1990 Hypertension Hyperlipidemia CVA x 3 COPD Initial troponin was negative. She will need outpatient stress testing for risk stratification. Continue aspirin, plavix, beta scar. Will add statin. No evidence of previous atrial fibrillation. Echo is pending. Follow up in the office 1-2 for stress testing, outpatient telemetry. Code Status Full Discussed Condition With Larisa Colbert Feb 21, 2017 09:28
[2017-02-21] MEDS ORDERED: ATORVASTATIN 20 MG TAB PO SCH (09:30)
[2017-02-21 10:55] LABS: BASOPHIL % 0.3 % (0.0-2.0); HEMATOCRIT 42.4 % (35.0-46.0); HEMO FLAGS DIFF FINAL; LYMPH % 9.6 % (9.0-44.0); LYMPHOCYTE # 1.1 TH/MM3 (1.0-4.8); MEAN CELL VOLUME 85.5 FL (80.0-100.0); MEAN CORPUSCULAR HGB CONC 32.7 % (32.0-36.0); MONO % 3.6 % (0.0-8.0); NEUT % 86.5 % (16.0-70.0); PLATELET COUNT 223 TH/MM3 (150-450); RED BLOOD COUNT 4.96 MIL/MM3 (4.00-5.30); RED CELL DISTRIBUTION WIDTH 13.9 % (11.6-17.2); WHITE BLOOD COUNT 11.6 TH/MM3 (4.0-11.0)
[2017-02-21 11:22] LABS: ALT (GPT) 18 U/L (10-53); ANION GAP 10 MEQ/L (5-15); AST (GOT) 14 U/L (15-37); BLOOD UREA NITROGEN 15 MG/DL (7-18); CHLORIDE 105 MEQ/L (98-107); GLOMERULAR FILTRATION RATE 43 ML/MIN (>89); SODIUM (NA) 140 MEQ/L (136-145)
[2017-02-21 11:24] LABS: ALKALINE PHOSPHATASE 80 U/L (45-117); TOTAL BILIRUBIN ADULT 0.6 MG/DL (0.2-1.0)
--- NOTE | 2017-02-21 13:46 | PD.CONS ---
Assessment and Plan Assessment Consult received per stroke order set. EMR reviewed. MRI negative for acute stroke. Neurology consult reviewed and indicates vertigo which has now resolved. Consult deferred due to no acute stroke. Please reconsult as appropriate. Thank you. Susan Nayak MD Feb 21, 2017 13:46
--- NOTE | 2017-02-21 18:19 | ECHRPT ---
Indication: cva/tia CONCLUSIONS The left ventricular systolic function is normal with an estimated ejection fraction in the range of 55-60%. Mild concentric left ventricular hypertrophy. There is trace tricuspid valve regurgitation. Trivial pulmonary valve regurgitation. BP: 179 / 94 HR: 92 Rhythm: MEASUREMENTS (Male / Female) Normal Values Technical Quality:Technically difficult study 2D ECHO LV Diastolic Diameter PLAX 4.5 cm 4.2 - 5.9 / 3.9 - 5.3 cm LV Systolic Diameter PLAX 3.4 cm IVS Diastolic Thickness 1.6 cm 0.6 - 1.0 / 0.6 - 0.9 cm LVPW Diastolic Thickness 1.1 cm 0.6 - 1.0 / 0.6 - 0.9 cm LV Relative Wall Thickness 0.6 RV Internal Dim ED PLAX 2.9 cm M-MODE Aortic Root Diameter MM 3.3 cm LA Systolic Diameter MM 4.1 cm LA Ao Ratio MM 1.2 AV Cusp Separation MM 2.2 cm DOPPLER Mitral E Point Velocity 74.0 cm/s Mitral A Point Velocity 66.6 cm/s Mitral E to A Ratio 1.1 LV E' Lateral Velocity 9.2 cm/s Mitral E to LV E' Lateral Ratio 8.1 LV E' Septal Velocity 8.0 cm/s Mitral E to LV E' Septal Ratio 9.3 TR Peak Velocity 210.0 cm/s TR Peak Gradient 17.6 mmHg FINDINGS LEFT VENTRICLE Normal left ventricular size. Mild concentric left ventricular hypertrophy. The left ventricular systolic function is normal with an estimated ejection fraction in the range of 55-60%. RIGHT VENTRICLE Normal right ventricular size and systolic function. LEFT ATRIUM The left atrial size is normal. RIGHT ATRIUM The right atrium is not well visualized. ATRIAL SEPTUM Normal atrial septal thickness without atrial level shunting by limited color doppler interrogation. AORTA The aortic root and proximal ascending aorta are normal in size on limited imaging. MITRAL VALVE Structurally normal mitral valve. Mild mitral annular calcification. No mitral valve stenosis. No mitral valve regurgitation. AORTIC VALVE The aortic valve is not well visualized. No aortic valve stenosis. No aortic valve regurgitation. TRICUSPID VALVE Structurally normal tricuspid valve. There is trace tricuspid valve regurgitation. No tricuspid valve stenosis. PULMONARY VALVE The pulmonary valve is not well visualized. Trivial pulmonary valve regurgitation. VESSELS The inferior vena cava is normal in size. PERICARDIUM No pericardial effusion. Jayro Hassan DO (Electronically Signed) Final Date:21 February 2017 18:18
[2017-02-21] MEDS ORDERED: ATOR20TA15 PO (18:20)
[2017-02-21] MEDS ORDERED: BACT800T5 PO (18:20)
[2017-02-21] MEDS ORDERED: MECL12.574 PO (18:20)
[2017-02-21] MEDS ORDERED: WALKER/ADULT/FO1 MIS (18:22)
--- NOTE | 2017-02-21 18:23 | HHI.DCPOC ---
Discharge Care Plan Diagnosis: (1) Chronic back pain (2) Hypercholesteremia (3) Stroke (4) COPD (chronic obstructive pulmonary disease) (5) CAD (coronary artery disease) (6) Hypothyroidism (7) Vertigo (8) Hypertension (9) Left-sided weakness Goals to Promote Your Health * To prevent worsening of your condition and complications * To maintain your health at the optimal level Directions to Meet Your Goals Take your medications as prescribed Follow your dietary instruction Follow activity as directed Keep your appointments as scheduled Take your immunizations and boosters as scheduled If your symptoms worsen call your PCP, if no PCP go to Urgent Care Center or Emergency Room Smoking is Dangerous to Your Health. Avoid second hand smoke Call the 24-hour hour crisis hotline for domestic abuse at Oscar Martinez MD R3 Feb 21, 2017 18:23
--- NOTE | 2017-02-21 18:39 | HHI.FPPN ---
Subjective Remarks Patient seen and examined this morning. She states that she is feeling much better. She does note occasional dizziness. It is "inside my head" as described by her, she states it does not feel as though the room is spinning around. She continues to endorse some weakness on the left side which is improving. She states that she has had some left sided weakness since her last stroke, she is improving and almost at baseline. She notes headache in the back of her head, dull, improving from yesterday. No other complaints of nausea, vomiting, fever, chills, chest pain, shortness of breath, abdominal pain, change in bowel habits , change in urinary habits. (Aden Patino MD R1) Objective Vitals Vital Signs Date Time Temp Pulse Resp B/P Pulse Ox O2 Delivery O2 Flow Rate FiO2 02/21/17 16:59 94 21 02/21/17 16:38 97.6 84 16 157/71 93 02/21/17 12:31 74 02/21/17 12:26 97.7 71 16 144/74 94 02/21/17 08:46 97.8 92 16 131/69 92 02/21/17 07:41 96 02/21/17 04:47 98.9 89 20 180/86 95 02/21/17 01:38 98.2 86 18 154/72 93 02/20/17 21:11 98.1 91 20 148/79 90 02/20/17 20:49 96 21 I/O 02/20/17 02/20/17 02/20/17 02/21/17 02/21/17 02/21/17 07:00 15:00 23:00 07:00 15:00 23:00 Intake Total 75 ml 150 ml 720 ml Balance 75 ml 150 ml 720 ml Intake Oral 720 ml IV Total 75 ml 150 ml # Voids 1 2 2 # Bowel Movements 0 1 1 (Aden Patino MD R1) Result Diagram: 02/21/1751 02/21/1751 Imaging Last [address] 02/20/1736 Signed Impressions: Service Date/Time: February 09:50 - CONCLUSION: No acute intracranial abnormality is identified. Abiodun Zavala MD Chest X-Ray 02/20/17835 Signed Impressions: Service Date/Time: February 09:15 - CONCLUSION: 1. No acute cardiopulmonary disease. Bean Tello MD Neck Magnetic Resonance Angiography 02/20/17 Signed Impressions: Service Date/Time: February 18:39 - CONCLUSION: Negative MRA of the carotids. Raymon Spain MD Head Magnetic Resonance Angiography 02/20/17 Signed Impressions: Service Date/Time: February 18:39 - CONCLUSION: Negative MRA of the [place]. Raymon Spain MD Brain MRI 02/20/17 Signed Impressions: Service Date/Time: February 18:39 - CONCLUSION: Age-appropriate atrophy. No acute findings. Raymon Spain MD Objective Remarks GENERAL: This is a well-nourished, well-developed patient, in no apparent distress. SKIN: No rashes, ecchymoses or lesions. Cool and dry. HEAD: Atraumatic. Normocephalic. No temporal or scalp tenderness. EYES: Pupils equal round and reactive. Extraocular motions intact. No scleral icterus. No injection or drainage. ENT: Nose without bleeding, purulent drainage or septal hematoma. Throat without erythema, tonsillar hypertrophy or exudate. Uvula midline. Airway patent. NECK: Trachea midline. No JVD or lymphadenopathy. Supple, nontender, no meningeal signs. CARDIOVASCULAR: Regular rate and rhythm without murmurs, gallops, or rubs. RESPIRATORY: Clear to auscultation. Breath sounds equal bilaterally. No wheezes , rales, or rhonchi. GASTROINTESTINAL: Abdomen soft, non-tender, nondistended. No hepato-splenomegaly , or palpable masses. No guarding. MUSCULOSKELETAL: Extremities without clubbing, cyanosis, or edema. No joint tenderness, effusion, or edema noted. No calf tenderness. NEUROLOGICAL: Awake and alert. Cranial nerves II through XII intact. Motor and sensory grossly within normal limits.5/5 in RUE, 4/5 in LUE, 5/5 in RLE, 5/5 in LLE. Normal speech. No nystagmus noted on exam. Medications and IVs Current Medications Medications (Trade) Dose Ordered Sig/Mary Route Start Time Stop Time Status Last Admin (NS Flush) 2 ml UNSCH PRN IVF 8/3/17 08:45 (NS Flush) 2 ml UNSCH PRN IV FLUSH 02/20/17 12:30 (NS Flush) 2 ml BID IV FLUSH 02/20/17 21:00 02/21/17 08:31 (Zofran Inj) 4 mg Q6H PRN IVP 02/20/17 12:30 (Narcan Inj) 0.4 mg UNSCH PRN IV 02/20/17 12:30 (Symbicort 80-4.5 Mcg Inh) 2 puff Q12HR INH 02/20/17 12:45 (Plavix) 75 mg DAILY PO 02/21/17 09:00 02/21/17 08:29 Levothyroxine Sodium 150 mcg 150 mcg DAILY PO 02/21/17 09:00 02/21/17 08:29 (NS 1000 ml Inj) 1,000 ml @ 170 mls/hr Q5H53M IV 02/20/17 14:49 02/21/17 05:34 (Bactrim Ds 800-160 Mg) 1 tab Q12HR PO 02/21/17 09:00 02/21/17 08:30 (Coreg) 6.25 mg Q12HR PO 02/20/17 21:30 02/21/17 08:29 (Apresoline Inj) 10 mg Q6H PRN IV 02/20/17 21:30 (Heparin Inj) 5,000 units Q12H SQ 02/20/17 22:00 02/21/17 08:30 (Lipitor) 20 mg DAILY PO 02/21/17 09:30 02/21/17 10:44 (Aden Patino MD R1) A/P Assessment and Plan 71 year old female with past history of CVA x3 who presented with acute onset left sided weakness. Head CT shows no acute changes, awaiting MRI (Aden Patino MD R1) Attending Attestation THIS CASE WAS DISCUSSED WITH THE RESIDENT PHYSICIANS. I HAVE REVIEWED THE RECORD AND EXAMINATION PERFORMED. AGREE WITH THE ABOVE NOTE AND PLAN OF CARE WAS DISCUSSED. I HAVE AUTHORIZED THE ORDER FOR ADMISSION TO AN IN-PATIENT STATUS. (Javier Granados MD) Problem List: (1) Vertigo Status: Acute Plan: Vertigo acute yesterday, improved today. No nystagmus on examination. MRI /Head CT without significant acute changes. -Continue meclizine (2) Left-sided weakness Status: Acute Plan: History of 3 strokes, with self reported change in speech, although seemingly normal on exam - CT head without acute changes - MRI with age appropriate atrophy - ASA 325 given - A1C 5.5 - Speech, OT, PT on board (3) UTI (urinary tract infection) Status: Acute Plan: UA hazy, positive for LE and nitrites - Gram negative rods - Started on Bactrim Q12 - F/U sensitivities (4) COPD (chronic obstructive pulmonary disease) Status: Acute Plan: - symbicort Q12 - Duoneb treatments Q6 - Albuterol Q2 PRN (5) Hypothyroidism Status: Acute Plan: History of hypothyroidism - Continue home medications - Synthroid 150mcg (6) Hypercholesteremia Status: Acute Plan: Currently has hypercholesterolemia on labs. Statin adverse reaction described as nausea/vomiting/diarrhea. Patient agreed to start at a low dose and titrate as needed - atorvastatin 20 daily (7) FEN Status: Acute Plan: Fluids - Maintenance fluids Electrolytes - Monitor and correct as needed Nutrition - Currently NPO PPX -On SCDS, will consider chemical PPX following MRI (Aden Patino MD R1) Aden Patino MD R1 Feb 21, 2017 18:39 Javier Granados MD Feb 23, 2017 14:24
[2017-02-24] MEDS ORDERED: MACR100C2 PO (14:29)
== END 2017-02-21 19:00 | disposition home or self-care (01) | DRG 149 ==
LOC: NEPE 08:14 → NEDA 11:44 → N05A 13:25
PROVIDERS: ADMIT Family Medicine; ATTEND Family Medicine
DX: H81.20 Vestibular neuronitis, unspecified ear (principal); I69.354 Hemiplegia and hemiparesis following cerebral infarction affecting left non-dominant side; I11.0 Hypertensive heart disease with heart failure; I50.9 Heart failure, unspecified; N39.0 Urinary tract infection, site not specified; I48.91 Unspecified atrial fibrillation; J44.9 Chronic obstructive pulmonary disease, unspecified; Z85.42 Personal history of malignant neoplasm of other parts of uterus; M19.90 Unspecified osteoarthritis, unspecified site; E78.00 Pure hypercholesterolemia, unspecified; I25.10 Atherosclerotic heart disease of native coronary artery without angina pectoris; K21.9 Gastro-esophageal reflux disease without esophagitis; M81.0 Age-related osteoporosis without current pathological fracture; I25.2 Old myocardial infarction; E03.9 Hypothyroidism, unspecified; Z95.5 Presence of coronary angioplasty implant and graft; Z87.891 Personal history of nicotine dependence; E78.5 Hyperlipidemia, unspecified; G89.29 Other chronic pain; M54.9 Dorsalgia, unspecified
CPT/HCPCS: 70450; 70544; 70548; 70551; 71010; 80053; 80061; 81001; 82550; 82948; 83036; 83880; 84484; 85007; 85025; 85027; 85610; 85652; 85730; 87077; 87086; 87186; 93005; 93306; 94150; 94640; 94664; 96365; 96375; A9579; J1644; J2060; J2405; J2765; J7030; J7040

== ENCOUNTER 2017-10-12 11:00 | Inpatient (IN) | payer MEDICARE, MEDICAID ==
[~2017-10-12] VITALS: Ht 172.7 cm; Wt 139.9 kg
[2017-10-12] VITALS (8 sets, daily range): BP systolic 132–164; BP diastolic 65–77; PULSE 82–115; RESP 18–22; TEMP 98.1–99.9; O2SAT 93–98
[~2017-10-12 11:00] MED LIST changes: +AMLO5TAB2 PO; -ASPI-110 PO; +ASPI1TAB57 PO; +ATOR20TA15 PO; -DIPH2.5T14 PO; +LOMO2.5T PO; +LOSA100T PO; +MACR100C2 PO; +MECL12.574 PO; -OMEP20TA PO; +OMEP20TA93 PO; -POTA-243 PO; -TIZA2CAP3 PO; +TIZA2TAB PO; -TRIA.1%T TOP; +WALKER/ADULT/FO1 MIS; -ZOFR4TAB PO; -ZOFR4TAB3 SL; -ZOSTINJ SQ
[2017-10-12] MEDS ORDERED: SODIUM CHLOR 0.9% 1000 ML INJ 1,000 ML IV SCH (11:15)
[2017-10-12] MEDS ORDERED: FAMOTIDINE 20 MG/2 ML VIAL IV PUSH ONE (11:15)
[2017-10-12] MEDS ORDERED: ONDANSETRON HCL 4 MG/2 ML VIAL IVP ONE (11:15)
[2017-10-12] MEDS ORDERED: MORPHINE SULFATE 4 MG/ML INJ IV PUSH ONE (11:15)
[2017-10-12] MEDS ORDERED: SODIUM CHLORIDE 0.9% FLUSH 10 ML FLUSH IV FLUSH PRN ×2 (11:15→13:30)
--- NOTE | 2017-10-12 11:28 | PD ---
HPI Chief Complaint: Abdominal Pain Time Seen by Provider: 11:08 Travel History International Travel<30 days: No Contact w/Intl Traveler<30days: No Traveled to known affect area: No History of Present Illness HPI 72-year-old morbidly obese female is brought in from home via EMS with reports of sudden onset nausea, vomiting, and diarrhea with left upper quadrant pain. Patient is febrile. Patient denies urinary or vaginal symptoms. Patient states pain is constant. She has history of gallbladder removal as well as appendectomy, as well as total hysterectomy secondary to cancer. Patient states she did have a colonoscopy approximately 5 years ago without significant findings noted. Patient denies blood in the vomitus or stool. She denies upper respiratory symptoms or cough. Pain is 8 out of 10. She denies shortness of breath. Patient states she recently saw her primary care physician and received a pneumococcal vaccine. Patient has multiple allergies please see list. PFSH Past Medical History Hx Anticoagulant Therapy: Yes Arthritis: Yes Asthma: Yes Heart Rhythm Problems: No Cardiac Catheterization: Yes Cardiovascular Problems: Yes Chest Pain: Yes COPD: Yes Cerebrovascular Accident: Yes (X 3) Coronary Artery Disease: Yes Diabetes: No Diminished Hearing: No Gastrointestinal Disorders: Yes GERD: Yes Genitourinary: No Headaches: Yes Heparin Induced Thrombocytopen: No Hypertension: Yes Musculoskeletal: Yes (OSTEOPOROSIS, DEGENERATIVE DISK DISEASE) Neurologic: Yes (S2 tumors, inoperable) Psychiatric: No Reproductive: Yes (uterine cancer, s/p hysterectomy and oopharectomy) Respiratory: Yes (EMPHYSEMA) Integumentary: Yes (TO BOTH FEET-FISSURES) Myocardial Infarction: Yes Thyroid Disease: Yes (HYPO) Ulcer: Yes (1997) ?: Not Menopausal: Yes : 12 Para: 5 Miscarriage: 7 Past Surgical History Abdominal Surgery: Yes (cholecystectomy at 19) Appendectomy: Yes Cardiac Surgery: Yes (ANGIOPLASTY X2) Cholecystectomy: Yes Coronary Artery Bypass Graft: No Coronary Stent: Yes Gynecologic Surgery: Yes (UTERINE CA 1999 HYST and ovaries) Hysterectomy: Yes Other Surgery: Yes Social History Alcohol Use: No Tobacco Use: No Substance Use: No Allergies-Medications (Allergen,Severity, Reaction): Coded Allergies: codeine (Unverified Allergy, Severe, 05/07/17) diatrizoate meglumine (Unverified Allergy, Severe, 05/07/17) gadobenic acid (Unverified Allergy, Severe, 05/07/17) gadodiamide (Unverified Allergy, Severe, 05/07/17) gadoteridol (Unverified Allergy, Severe, 05/07/17) iodine (Unverified Allergy, Severe, 05/07/17) iodixanol (Unverified Allergy, Severe, 05/07/17) iohexol (Unverified Allergy, Severe, 05/07/17) penicillin G (Unverified Allergy, Severe, 05/07/17) povidone-iodine (Unverified Allergy, Severe, 05/07/17) shellfish derived (Unverified Allergy, Severe, Anaphylaxis, 05/07/17) sodium iodide (Unverified Allergy, Severe, 05/07/17) Fish Containing Products (Unverified Allergy, Intermediate, Hives, ) egg yolk (Unverified Allergy, Intermediate, Hives, 05/07/17) levofloxacin (Unverified Allergy, Unknown, Shortness of Breath, 05/07/17) *MDRO Multi-Drug Resistant Organism (Verified Adverse Reaction, Unknown, 05/07/17) ESBL+KL PN (urine-04/30/16) ESBL (urine) 02/20/17 Reported Meds & Prescriptions Reported Meds & Active Scripts Active Lomotil (Diphenoxylate-Atropine) 2.5-0.025 Mg Tab 1 Tab PO Q6H PRN Atorvastatin (Atorvastatin Calcium) 20 Mg Tab 20 Mg PO DAILY Albuterol Neb (Albuterol Sulfate) 2.5 Mg/3 Ml Neb 2.5 Mg NEB Q4HR NEB PRN Plavix (Clopidogrel Bisulfate) 75 Mg Tab 75 Mg PO DAILY Amlodipine (Amlodipine Besylate) 5 Mg Tab 5 Mg PO DAILY Tizanidine (Tizanidine HCl) 2 Mg Tab 2 Mg PO BID K-Tab (Potassium Chloride) 10 Meq Tab 10 Meq PO BID Symbicort Inh (Budesonide/Formoterol Fumarate) 80-4.5 Mcg/Act Aero 2 Puff INH Q12HR Losartan (Losartan Potassium) 100 Mg Tab 100 Mg PO DAILY Omeprazole 20 Mg Tab 20 Mg PO HS Walker/Adult/Folding (Device) 1 Mis Mis 1 Ea .ROUTE DIRECTED Levothyroxine (Levothyroxine Sodium) 150 Mcg Tab 150 Mcg PO DAILY Triamcinolone Topical 0.5 % Oint 1 Applic TOPICAL BID Reported Lortab (Hydrocodone-Acetaminophen) 7.5-325 Mg Tab 1 Tab PO TID PRN Aspirin 81 (Aspirin) 81 Mg Tabdr 81 Mg PO DAILY Review of Systems Except as stated in HPI: all other systems reviewed are Neg General / Constitutional: Positive: Fever, Chills Eyes: No: Visual changes HENT: No: Headaches Cardiovascular: No: Chest Pain or Discomfort Respiratory: No: Shortness of Breath Gastrointestinal: Positive: Nausea, Vomiting, Diarrhea, Abdominal Pain, No: Hematemesis, Hematochezia, Constipation, Indigestion, Dysphagia, Loss of Appetite Genitourinary: No: Dysuria Musculoskeletal: No: Pain Skin: No Rash Neurologic: No: Weakness Psychiatric: No: Depression Endocrine: No: Polydipsia Hematologic/Lymphatic: No: Easy Bruising Physical Exam Narrative GENERAL: Patient appears ill but not septic. SKIN: Warm and dry. She is mildly diaphoretic. Decreased pallor. Normal turgor. HEAD: Atraumatic. Normocephalic. EYES: Pupils equal and round. No scleral icterus. No injection or drainage. ENT: No nasal bleeding or discharge. Mucous membranes pink and moist. Pharynx is clear. Airways patent. NECK: Trachea midline. Supple nontender. CARDIOVASCULAR: Regular rate and rhythm. RESPIRATORY: No accessory muscle use. Clear to auscultation. Breath sounds equal bilaterally. GASTROINTESTINAL: Abdomen soft, moderate diffuse left upper quadrant tenderness , nondistended. No point tenderness or rebound. No obvious CVA tenderness. Exam is somewhat limited secondary to patient size. Hepatic and splenic margins not palpable. MUSCULOSKELETAL: Extremities without clubbing, cyanosis, or edema. No obvious deformities. NEUROLOGICAL: Awake and alert. No obvious cranial nerve deficits. Motor grossly within normal limits. Five out of 5 muscle strength in the arms and legs. Normal speech. PSYCHIATRIC: Appropriate mood and affect; insight and judgment normal. Data Data Last Documented VS Vital Signs Date Time Temp Pulse Resp B/P (MAP) Pulse Ox O2 Delivery O2 Flow Rate FiO2 10/12/17 11:30 98 10/12/17 11:07 99.7 115 22 164/77 (106) Orders Orders Complete Blood Count With Diff (10/12/17 11:15) Comprehensive Metabolic Panel (10/12/17 11:15) Lipase (10/12/17 11:15) Lactic Acid (10/12/17 11:15) Prothrombin Time / Inr (Pt) (10/12/17 11:15) Act Partial Throm Time (Ptt) (10/12/17 11:15) Urinalysis - C+S If Indicated (10/12/17 11:15) Ct Abd/Pel W/O Iv Contrast (10/12/17 11:15) Iv Access Insert/Monitor (10/12/17 11:15) Ecg Monitoring (10/12/17 11:15) Oximetry (10/12/17 11:15) NPO (10/12/17 11:15) Morphine Inj (Morphine Inj) (10/12/17 11:15) Ondansetron Inj (Zofran Inj) (10/12/17 11:15) Sodium Chlor 0.9% 1000 Ml Inj (Ns 1000 M (10/12/17 11:15) Sodium Chloride 0.9% Flush (Ns Flush) (10/12/17 11:15) Electrocardiogram (10/12/17 11:15) Famotidine Inj (Pepcid Inj) (10/12/17 11:15) Influenzae A/B Antigen (10/12/17 11:17) Acetaminophen (Tylenol) (10/12/17 12:15) Blood Culture (10/12/17 12:35) Cefepime Inj (Maxipime Inj) (10/12/17 12:45) Urine Culture (10/12/17 11:30) Labs Laboratory Tests Test 10/12/17 11:30 10/12/17 12:10 White Blood Count 20.6 TH/MM3 Red Blood Count 4.99 MIL/MM3 Hemoglobin 14.2 GM/DL Hematocrit 41.9 % Mean Corpuscular Volume 84.0 FL Mean Corpuscular Hemoglobin 28.5 PG Mean Corpuscular Hemoglobin Concent 33.9 % Red Cell Distribution Width 13.2 % Platelet Count 217 TH/MM3 Mean Platelet Volume 8.7 FL Neutrophils (%) (Auto) 93.4 % Lymphocytes (%) (Auto) 3.0 % Monocytes (%) (Auto) 3.3 % Eosinophils (%) (Auto) 0.0 % Basophils (%) (Auto) 0.3 % Neutrophils # (Auto) 19.3 TH/MM3 Lymphocytes # (Auto) 0.6 TH/MM3 Monocytes # (Auto) 0.7 TH/MM3 Eosinophils # (Auto) 0.0 TH/MM3 Basophils # (Auto) 0.1 TH/MM3 CBC Comment DIFF FINAL Differential Comment Prothrombin Time 10.3 SEC Prothromb Time International Ratio 1.0 RATIO Activated Partial Thromboplast Time 26.6 SEC Urine Color YELLOW Urine Turbidity CLEAR Urine pH 6.0 Urine Specific [place] 1.015 Urine Protein NEG mg/dL Urine Glucose (UA) NEG mg/dL Urine Ketones NEG mg/dL Urine Occult Blood NEG Urine Nitrite NEG Urine Bilirubin NEG Urine Urobilinogen LESS THAN 2.0 MG/DL Urine Leukocyte Esterase TRACE Urine RBC 2 /hpf Urine WBC 7 /hpf Urine WBC Clumps RARE Urine Squamous Epithelial Cells 1 /hpf Urine Hyaline Casts 1 /lpf Microscopic Urinalysis Comment CULTURE INDICATED Blood Urea Nitrogen 10 MG/DL Creatinine 1.38 MG/DL Random Glucose 139 MG/DL Total Protein 7.5 GM/DL Albumin 3.5 GM/DL Calcium Level 9.6 MG/DL Alkaline Phosphatase 108 U/L Aspartate Amino Transf (AST/SGOT) 50 U/L Alanine Aminotransferase (ALT/SGPT) 21 U/L Total Bilirubin 1.1 MG/DL Sodium Level 137 MEQ/L Potassium Level 5.4 MEQ/L Chloride Level 102 MEQ/L Carbon Dioxide Level 23.8 MEQ/L Anion Gap 11 MEQ/L Estimat Glomerular Filtration Rate 38 ML/MIN Lipase 70 U/L Lactic Acid Level 1.6 mmol/L MDM Medical Decision Making Medical Screen Exam Complete: Yes Emergency Medical Condition: Yes Differential Diagnosis Colitis. Diverticulitis. Urinary tract infection. Pneumonia. Cardiac syndrome. Sepsis. Influenza. Narrative Course Labs ordered including CBC, CMP, coagulation studies, lipase, and lactic acid as well as urinalysis. IV access is obtained and patient is given 4 mg Zofran IV, 4 mg morphine IV, and 20 mg Pepcid IV. Patient is given 1000 mL of normal saline bolus. Rapid influenza is ordered. CT of the abdomen is ordered without IV contrast as the patient has allergies. CT showed: 0.7 cm stone in the distal left ureter with severe dilatation of the left collecting system and/or proximal left ureter. CBC shows significant leukocytosis of 20.6. 93.4% neutrophils noted. Sepsis protocol is initiated. Blood cultures are ordered. Second liter of normal saline bolus ordered. CMP showed potassium 5.4, creatinine is 1.38, GFR 38, random glucose 139. Lactic acid is normal at 1.6. Total bilirubin elevated at 1.1, AST is 50, lipase is 70. Urinalysis shows 2 RBCs per high-power field, 7 WBCs per high-power field, rare WBC clumps, and urine is cultured. This is a catheterized specimen. Patient discussed with Dr. Mosquera, and patient was given 2 g cefepime IV. Patient is given 1000 mg Tylenol p.o. Calls placed to the hospitalist for admission. Sepsis Criteria SIRS Criteria (2 or more): Heart rate over 90, WBC > 06635, < 4000 or > 10% bands Sepsis Criteria (SIRS+source): Infect source susp/known Criteria Outcome: Meets SIRS criteria, Meets sepsis criteria Diagnosis Primary Impression: Urosepsis Additional Impression: Kidney stone on left side Admitting Information Admitting Physician Requests: Admit Condition: Stable Malcolm Wilde Oct 12, 2017 11:28
[2017-10-12] MEDS ORDERED: ACETAMINOPHEN 500 MG CPLT PO ONE (12:15)
[2017-10-12 12:29] LABS: AUTOMATED NEUTROPHIL # 19.3 TH/MM3 (1.8-7.7); BASOPHIL # 0.1 TH/MM3 (0-0.2); BASOPHIL % 0.3 % (0.0-2.0); HEMATOCRIT 41.9 % (35.0-46.0); HEMOGLOBIN 14.2 GM/DL (11.6-15.3); LYMPHOCYTE # 0.6 TH/MM3 (1.0-4.8); MEAN CORPUSCULAR HEMOGLOBIN 28.5 PG (27.0-34.0); MEAN CORPUSCULAR HGB CONC 33.9 % (32.0-36.0); MEAN PLATELET VOLUME 8.7 FL (7.0-11.0); MONO % 3.3 % (0.0-8.0); MONOCYTE # 0.7 TH/MM3 (0-0.9); NEUT % 93.4 % (16.0-70.0); PLATELET COUNT 217 TH/MM3 (150-450); RED BLOOD COUNT 4.99 MIL/MM3 (4.00-5.30); RED CELL DISTRIBUTION WIDTH 13.2 % (11.6-17.2); WHITE BLOOD COUNT 20.6 TH/MM3 (4.0-11.0)
--- NOTE | 2017-10-12 12:30 | RADRPT ---
EXAM DATE/TIME: 10/12/2017 12:15 [facility] COMPARISON: CT ABDOMEN & PELVIS W/O CONTRAST, April 30, 2016, 20:35. INDICATIONS : Left upper abdominal pain since last night, nausea,vomiting. ORAL CONTRAST: No oral contrast ingested. RADIATION DOSE: 16.96 CTDIvol (mGy) MEDICAL HISTORY : Cardiovascular disease. Congestive heart failure. Hypertension.GERD,DDD,Uterine ca SURGICAL HISTORY : Appendectomy. Cholecystectomy.Hysterectomy. ENCOUNTER: Initial ACUITY: 1 day PAIN SCALE: 10/10 LOCATION: Left upper quadrant in the future if there is a medical necessity for iodinated contrast. TECHNIQUE: Volumetric scanning of the abdomen and pelvis was performed. Using automated exposure control and ad justment of the mA and/or kV according to patient size, radiation dose was kept as low as reasonably achievable to obtain optimal diagnostic quality images. DICOM format image data is available electro nically for review and comparison. FINDINGS: LOWER LUNGS: The visualized lower lungs are clear. LIVER: Homogeneous density without lesion. There is no dilation of the biliary tree. The patient is status post cholecystectomy. SPLEEN: Normal size without lesion. PANCREAS: Within normal limits. KIDNEYS: There is severe dilatation of the left collecting system and left proximal and mid ureter down to the level of the mid pelvis where there is a 0.7 cm distal ureteral stone. There is left perinephric str anding. The right kidney is normal. ADRENAL GLANDS: Within normal limits. VASCULAR: There is no aortic aneurysm. Arterial calcifications are seen. BOWEL/MESENTERY: There are scattered colonic diverticula in the left-sided colon. ABDOMINAL WALL: Within normal limits. RETROPERITONEUM: There are normal size lymph nodes seenin the left periaortic region. BLADDER: There is a [place] catheter in the bladder. REPRODUCTIVE: The patient is status post hysterectomy. INGUINAL: There is no lymphadenopathy or hernia. MUSCULOSKELETAL: There is degenerative change of the lower lumbar spine and at the left hip. CONCLUSION: 0.7 cm stone in the distal left ureter with severe dilatation of the left collecting system and/or pr oximal left ureter. Abiodun Delaney MD on October 12, 2017 at 12:20 Board Certified Radiologist. This report was verified electronically.
[2017-10-12 12:39] LABS: PROTHROMBIN TIME - PATIENT 10.3 SEC (9.8-11.6)
[2017-10-12] MEDS ORDERED: CEFEPIME INJ 2,000 MG in SODIUM CHLORIDE 0.9% INJ 100 ML IV ONE (12:45)
[2017-10-12 12:48] LABS: BILIRUBIN, URINE NEG (NEG); BLOOD, URINE NEG (NEG); GLUCOSE,URINE NEG (NEG); HYALINE CAST, URINE 1 /lpf (RARE); KETONE, URINE NEG (NEG); NITRITE,URINE NEG (NEG); SQUAMOUS EPITHELIAL CELL URINE 1 /hpf (0-5); URINE COLOR YELLOW (YELLW/STRAW); URINE LEUKOCYTE ESTERASE TRACE (NEG); WHITE BLOOD CELL CLUMPS RARE
[2017-10-12 12:52] LABS: ALT (GPT) 21 U/L (10-53)
[2017-10-12 12:54] LABS: ALKALINE PHOSPHATASE 108 U/L (45-117); TOTAL BILIRUBIN ADULT 1.1 MG/DL (0.2-1.0); TOTAL PROTEIN 7.5 GM/DL (6.4-8.2)
[2017-10-12 12:55] LABS: ALBUMIN 3.5 GM/DL (3.4-5.0); AST (GOT) 50 U/L (15-37); BICARBONATE 23.8 MEQ/L (21.0-32.0); BLOOD UREA NITROGEN 10 MG/DL (7-18); CALCIUM 9.6 MG/DL (8.5-10.1); CHLORIDE 102 MEQ/L (98-107); CREATININE 1.38 MG/DL (0.50-1.00); GLOMERULAR FILTRATION RATE 38 ML/MIN (>89); GLUCOSE,RANDOM 139 MG/DL (74-106); SODIUM (NA) 137 MEQ/L (136-145)
[2017-10-12] MEDS ORDERED: NALOXONE HCL 0.4 MG/ML AMP IV PUSH PRN (13:30)
[2017-10-12] MEDS ORDERED: ACETAMINOPHEN 325 MG TAB PO PRN (13:30)
[2017-10-12] MEDS ORDERED: SENNOSIDES 8.6 MG TAB PO PRN (13:30)
[2017-10-12] MEDS ORDERED: LACTULOSE SYRUP 20 GM/30 ML CUP PO PRN (13:30)
[2017-10-12] MEDS ORDERED: BISACODYL 10 MG SUPP RECTAL PRN (13:30)
[2017-10-12] MEDS ORDERED: ONDANSETRON HCL 4 MG/2 ML VIAL IVP PRN (13:30)
[2017-10-12] MEDS ORDERED: MAGNESIUM HYDROXIDE SUSP 30 ML CUP PO PRN (13:30)
[2017-10-12] MEDS ORDERED: TAMSULOSIN HCL 0.4 MG CAP PO ONE (13:45)
[2017-10-12] MEDS ORDERED: RESP: ALBUTEROL 2.5 MG/3 ML NEB (PRN) NEB (16:00)
--- NOTE | 2017-10-12 16:09 | HHI.HP ---
[facility] Service [facility] Primary Care Physician Unknown Admission Diagnosis urosepsis, obstructing renal stone Diagnoses: (1) Kidney stone on left side (2) UTI (urinary tract infection) Travel History International Travel<30 Days: No Contact w/Intl Traveler <30 Da: No Traveled to Known Affected Are: No History of Present Illness 72-year-old female with a history of stroke 4, atrial fibrillation, chronic low back pain presents with kidney stone obstructing her left distal ureter. She states that her symptoms became markedly worse starting yesterday and unable to tolerate the pain she presented to the ER after waiting 24 hours. When I asked her about any change in her low back pain she states that for the last week she has had worsening of her overall back pain. CT scan revealed a 0.7 cm stone obstructing distal ureter causing severe dilation of the proximal ureter. She states that her pain is well controlled on morphine she is now having some breakthrough pain after waiting a few hours since her last dose. She has been having a low-grade fever at home and presents with a fever of 99 F. When I inquired about her tachycardia she says that she always has an elevated heart rate when she tries to exert herself at home, her current rate is consistent with that rate. She was recently placed on a diuretic for peripheral edema but has not taken any doses yet. Review of Systems Constitutional: COMPLAINS OF: Fever, DENIES: Weight gain, Weight loss Eyes: DENIES: Eye inflammation, Eye pain, Vision loss Ears, nose, mouth, throat: DENIES: Hearing loss, Vertigo, Nasal discharge, Throat pain, Hoarseness, Ear Pain Respiratory: DENIES: Cough, Wheezing, Hemoptysis Cardiovascular: COMPLAINS OF: Lower Extremity Edema, DENIES: Chest pain, Palpitations, Syncope Gastrointestinal: COMPLAINS OF: Nausea, DENIES: Black stools, Bloody stools, Constipation, Diarrhea Musculoskeletal: COMPLAINS OF: Back pain, DENIES: Joint pain, Muscle aches, Stiffness, Joint Swelling Hematologic/lymphatic: DENIES: Bruising, Lymphadenopathy Neurologic: DENIES: Localized weakness, Paresthesias, Seizures, Speech Problems Psychiatric: DENIES: Anxiety, Confusion, Mood changes, Depression Past Family Social History Past Medical History Degenerative disc disease, atrial fibrillation, stroke 1, TIA 3, sacral tumors (benign), osteopenia Past Surgical History Cholecystectomy 1965 Hysterectomy with oophorectomy 1998 Allergies: Coded Allergies: codeine (Unverified Allergy, Severe, 05/07/17) diatrizoate meglumine (Unverified Allergy, Severe, 05/07/17) gadobenic acid (Unverified Allergy, Severe, 05/07/17) gadodiamide (Unverified Allergy, Severe, 05/07/17) gadoteridol (Unverified Allergy, Severe, 05/07/17) iodine (Unverified Allergy, Severe, 05/07/17) iodixanol (Unverified Allergy, Severe, 05/07/17) iohexol (Unverified Allergy, Severe, 05/07/17) penicillin G (Unverified Allergy, Severe, 05/07/17) povidone-iodine (Unverified Allergy, Severe, 05/07/17) shellfish derived (Unverified Allergy, Severe, Anaphylaxis, 05/07/17) sodium iodide (Unverified Allergy, Severe, 05/07/17) Fish Containing Products (Unverified Allergy, Intermediate, Hives, ) egg yolk (Unverified Allergy, Intermediate, Hives, 05/07/17) levofloxacin (Unverified Allergy, Unknown, Shortness of Breath, 05/07/17) *MDRO Multi-Drug Resistant Organism (Verified Adverse Reaction, Unknown, 05/07/17) ESBL+KL PN (urine-04/30/16) ESBL (urine) 02/20/17 Family History Adopted Social History 34 years of smoking quit >20 years ago Denies alcohol use Physical Exam Vital Signs Vital Signs Date Time Temp Pulse Resp B/P (MAP) Pulse Ox O2 Delivery O2 Flow Rate FiO2 10/12/17 11:30 98 10/12/17 11:07 99.7 115 22 164/77 (106) 96 Physical Exam GENERAL: Obese patient in mild distress due to pain SKIN: No rashes, ecchymoses or lesions. Cool and dry. HEAD: Atraumatic. Normocephalic. No temporal or scalp tenderness. EYES: Pupils equal round and reactive. Extraocular motions intact. No scleral icterus. No injection or drainage. ENT: Nose without bleeding, purulent drainage or septal hematoma. Throat without erythema, tonsillar hypertrophy or exudate. Uvula midline. Airway patent. NECK: Trachea midline. No JVD or lymphadenopathy. Supple, nontender, no meningeal signs. CARDIOVASCULAR: Sinus tachycardia, no significant murmurs RESPIRATORY: Clear to auscultation, with delayed inspiratory sounds. Breath sounds equal bilaterally. No wheezes, rales, or rhonchi. GENITOURINARY: CVA tenderness left side GASTROINTESTINAL: Abdomen soft, obese, non-tender, nondistended. No guarding. MUSCULOSKELETAL: Trace edema bilaterally. No joint tenderness, effusion, or edema noted. No calf tenderness. Negative Homans sign bilaterally. NEUROLOGICAL: Awake and alert. Cranial nerves II through XII intact. Motor and sensory grossly within normal limits. Five out of 5 muscle strength in all muscle groups. Normal speech. Laboratory Laboratory Tests Test 10/12/17 11:30 10/12/17 12:10 White Blood Count 20.6 Red Blood Count 4.99 Hemoglobin 14.2 Hematocrit 41.9 Mean Corpuscular Volume 84.0 Mean Corpuscular Hemoglobin 28.5 Mean Corpuscular Hemoglobin Concent 33.9 Red Cell Distribution Width 13.2 Platelet Count 217 Mean Platelet Volume 8.7 Neutrophils (%) (Auto) 93.4 Lymphocytes (%) (Auto) 3.0 Monocytes (%) (Auto) 3.3 Eosinophils (%) (Auto) 0.0 Basophils (%) (Auto) 0.3 Neutrophils # (Auto) 19.3 Lymphocytes # (Auto) 0.6 Monocytes # (Auto) 0.7 Eosinophils # (Auto) 0.0 Basophils # (Auto) 0.1 CBC Comment DIFF FINAL Differential Comment Prothrombin Time 10.3 Prothromb Time International Ratio 1.0 Activated Partial Thromboplast Time 26.6 Urine Color YELLOW Urine Turbidity CLEAR Urine pH 6.0 Urine Specific [place] 1.015 Urine Protein NEG Urine Glucose (UA) NEG Urine Ketones NEG Urine Occult Blood NEG Urine Nitrite NEG Urine Bilirubin NEG Urine Urobilinogen LESS THAN 2.0 Urine Leukocyte Esterase TRACE Urine RBC 2 Urine WBC 7 Urine WBC Clumps RARE Urine Squamous Epithelial Cells 1 Urine Hyaline Casts 1 Microscopic Urinalysis Comment CULTURE INDICATED Blood Urea Nitrogen 10 Creatinine 1.38 Random Glucose 139 Total Protein 7.5 Albumin 3.5 Calcium Level 9.6 Alkaline Phosphatase 108 Aspartate Amino Transf (AST/SGOT) 50 Alanine Aminotransferase (ALT/SGPT) 21 Total Bilirubin 1.1 Sodium Level 137 Potassium Level 5.4 Chloride Level 102 Carbon Dioxide Level 23.8 Anion Gap 11 Estimat Glomerular Filtration Rate 38 Lipase 70 Lactic Acid Level 1.6 Date/Time Source Procedure Growth Status 10/12/17 12:50 Blood Peripheral Aerobic Blood Culture Pending Received 10/12/17 12:50 Blood Peripheral Anaerobic Blood Culture Pending Received 10/12/17 11:30 Nasal Washing Influenza Types A,B Antigen (MALA) - Final NEGATIVE FOR FLU A AND B ANTIGEN.... Complete 10/12/17 11:30 Urine Clean Catch Urine Culture Pending Received Result Diagram: 10/12/17 1130 10/12/17 1130 Septic Shock Reassessment Septic shock perfusion: reassessment completed Caprini VTE Risk Assessment Caprini VTE Risk Assessment: Mod/High Risk (score >= 2) Caprini Risk Assessment Model Point Value = 1 Point Value = 2 Point Value = 3 Point Value = 5 Age 41-60 Minor surgery BMI > 25 kg/m2 Swollen legs Varicose veins or History of unexplained or recurrent spontaneous Oral contraceptives or hormone replacement Sepsis (< 1 month) Serious lung disease, including pneumonia (< 1 month) Abnormal pulmonary function Acute myocardial infarction Congestive heart failure (< 1 month) History of inflammatory bowel disease Medical patient at bed rest Age 61-74 Arthroscopic surgery Major open surgery (> 45 min) Laparoscopic surgery (> 45 min) Malignancy Confined to bed (> 72 hours) Immobilizing plaster cast Central venous access Age >= 75 History of VTE Family history of VTE Factor V Leiden Prothrombin [id number] Lupus anticoagulant Anticardiolipin antibodies Elevated serum homocysteine Heparin-induced thrombocytopenia Other congenital or acquired thrombophilia Stroke (< 1 month) Elective arthroplasty Hip, pelvis, or leg fracture Acute spinal cord injury (< 1 month) Prophylaxis Regimen Total Risk Factor Score Risk Level Prophylaxis Regimen 0-1 Low Early ambulation 2 Moderate Order ONE of the following: *Sequential Compression Device (SCD) *Heparin 5000 units SQ BID 3-4 Higher Order ONE of the following medications: *Heparin 5000 units SQ TID *Enoxaparin/Lovenox 40 mg SQ daily (WT < 150 kg, CrCl > 30 mL/min) *Enoxaparin/Lovenox 30 mg SQ daily (WT < 150 kg, CrCl > 10-29 mL/min) *Enoxaparin/Lovenox 30 mg SQ BID (WT < 150 kg, CrCl > 30 mL/min) AND/OR *Sequential Compression Device (SCD) 5 or more Highest Order ONE of the following medications: *Heparin 5000 units SQ TID (Preferred with Epidurals) *Enoxaparin/Lovenox 40 mg SQ daily (WT < 150 kg, CrCl > 30 mL/min) *Enoxaparin/Lovenox 30 mg SQ daily (WT < 150 kg, CrCl > 10-29 mL/min) *Enoxaparin/Lovenox 30 mg SQ BID (WT < 150 kg, CrCl > 30 mL/min) AND *Sequential Compression Device (SCD) Assessment and Plan Problem List: (1) Kidney stone on left side ICD Code: N20.0 - Calculus of kidney Status: Acute (2) UTI (urinary tract infection) ICD Code: N39.0 - Urinary tract infection, site not specified Status: Acute (3) Chronic back pain ICD Code: M54.9 - Dorsalgia, unspecified; G89.29 - Other chronic pain Status: Acute Assessment and Plan Obstructing nephrolithiasis 0.7 cm stone obstructing left distal ureter with proximal severe dilation Will hydrate overnight and single dose of Flomax given Toradol added to morphine doses for pain control Urology consulted for possible intervention Sinus tachycardia Patient has a history of atrial fibrillation but is currently in sinus rhythm, though tachycardic Hold amlodipine and replaced with metoprolol 12.5 mg twice daily to address rate Follow on telemetry Chronic low back pain This seems to have masked the onset of her kidney stone pain At home she manages her pain with [place] and tizanidine Toradol and morphine for kidney stone pain. Home pain meds held Hypertension Metoprolol added to home dose of Cozaar Amlodipine held Ankle edema Trace edema bilaterally She has a home dose of Lasix but has not used it yet We will give dose of Lasix prior to discharge, but after kidney stone has passed to avoid over stressing the kidneys COPD/emphysema Stable, treat as needed h/o stroke Resume Plavix and aspirin once kidney stone is passed DVT prophylaxis SCDs due to risk of bleed from kidney stone Benton Maddox MD Oct 12, 2017 16:09
[2017-10-12] MEDS: MORPHINE SULFATE 4 MG/ML INJ IV PUSH PRN ×2 (16:16→21:08)
[2017-10-12] MEDS: SODIUM CHLOR 0.9% 1000 ML INJ 1,000 ML IV SCH (17:55)
[2017-10-12] MEDS: SODIUM CHLOR 0.9% IV SCH (17:57)
[2017-10-12] MEDS: CEFEPIME IV SCH (17:57)
[2017-10-12] MEDS ORDERED: NON-FORMULARY DRUG (Omeprazole 20 MG) PO SCH ×2 (21:00)
[2017-10-12] MEDS: METOPROLOL TARTRATE 25 MG TAB PO SCH (21:06)
[2017-10-12] MEDS: PANTOPRAZOLE SOD 20 MG DELAYED RELEASE TAB PO SCH (21:06)
[2017-10-12] MEDS: SODIUM CHLORIDE 0.9% FLUSH 10 ML FLUSH IV FLUSH SCH (21:07)
[2017-10-12] MEDS: BUDESONIDE-FORMOTEROL 80/4.5 MCG INHALER INH SCH (23:32)
[2017-10-12] MEDS: KETOROLAC TROMETHAMINE 60 MG/2 ML (IM) VIAL IM PRN (23:32)
[2017-10-13] VITALS (7 sets, daily range): BP systolic 95–129; BP diastolic 51–58; PULSE 72–96; RESP 19–20; TEMP 98.1–99.2; O2SAT 92–95
[2017-10-13] MEDS: LEVOTHYROXINE SODIUM 150 MCG TAB PO SCH (05:34)
[2017-10-13] MEDS: KETOROLAC TROMETHAMINE 60 MG/2 ML (IM) VIAL IM PRN (05:38)
[2017-10-13 05:40] LABS: BICARBONATE 25.6 MEQ/L (21.0-32.0); CALCIUM 8.6 MG/DL (8.5-10.1); CREATININE 1.63 MG/DL (0.50-1.00)
[2017-10-13 05:57] LABS: AUTOMATED NEUTROPHIL # 12.1 TH/MM3 (1.8-7.7); BASOPHIL # 0.1 TH/MM3 (0-0.2); BASOPHIL % 0.5 % (0.0-2.0); EOSINOPHIL # 0.1 TH/MM3 (0-0.4); EOSINOPHIL % 0.4 % (0.0-4.0); HEMATOCRIT 33.8 % (35.0-46.0); HEMOGLOBIN 11.5 GM/DL (11.6-15.3); LYMPH % 7.2 % (9.0-44.0); MEAN CELL VOLUME 85.1 FL (80.0-100.0); MEAN CORPUSCULAR HEMOGLOBIN 28.9 PG (27.0-34.0); MEAN CORPUSCULAR HGB CONC 33.9 % (32.0-36.0); MEAN PLATELET VOLUME 8.3 FL (7.0-11.0); MONO % 8.3 % (0.0-8.0); MONOCYTE # 1.2 TH/MM3 (0-0.9); NEUT % 83.6 % (16.0-70.0); PLATELET COUNT 162 TH/MM3 (150-450); RED BLOOD COUNT 3.98 MIL/MM3 (4.00-5.30); RED CELL DISTRIBUTION WIDTH 13.4 % (11.6-17.2); WHITE BLOOD COUNT 14.4 TH/MM3 (4.0-11.0)
[2017-10-13] MEDS: LOSARTAN 50 MG TAB PO SCH (08:53)
[2017-10-13] MEDS: BUDESONIDE-FORMOTEROL 80/4.5 MCG INHALER INH SCH ×2 (08:54→22:10)
[2017-10-13] MEDS: ACETAMINOPHEN 1000 MG/100 ML 100 ML IV SCH ×3 (08:54→21:00)
[2017-10-13] MEDS: TAMSULOSIN HCL 0.4 MG CAP PO SCH (08:55)
[2017-10-13] MEDS: METOPROLOL TARTRATE 25 MG TAB PO SCH ×2 (08:56→22:09)
[2017-10-13] MEDS: SODIUM CHLORIDE 0.9% FLUSH 10 ML FLUSH IV FLUSH SCH ×2 (08:56→22:11)
--- NOTE | 2017-10-13 09:04 | MB ---
cc: Eder Vasques MD DATE: 10/13/2017 REASON FOR CONSULTATION: 1. Left distal ureteral stone. 2. Left flank pain. HISTORY OF PRESENT ILLNESS: The patient is a 72-year-old female with a history of atrial fibrillation, chronic back pain, history of stroke x 4, presented to the ER yesterday afternoon with acute onset of left-side flank pain 10/10, nausea and chills. The patient denies prior episodes of pain like this in the past. She had CT abdomen and pelvis without contrast done, which showed a 7 mm stone in the distal ureter with mild hydronephrosis. She was also found to have elevated white count of 20,000 and low-grade fever. Therefore, she was admitted for further evaluation. Urology was consulted. The patient denies prior history of kidney stones in the past. Overnight, her pain has much improved. She feels much better this morning. She denies any hematuria or dysuria but was having urinary frequency every hour and usually was just dribbling. She also does leak urine usually with coughing and sneezing. She denies a family history of kidney stones or family history of genitourinary malignancies. ALLERGIES: CODEINE, PENICILLIN, SHELLFISH, EGG YOLK, LEVAQUIN. PAST MEDICAL HISTORY: Significant for atrial fibrillation, stroke, TIA, osteopenia, degenerative disk disease. SURGICAL HISTORY: She had a cholecystectomy, hysterectomy. SOCIAL HISTORY: She has a 34-year uppe-cye-ovi history but quit 20 years ago. Denies alcohol or illicit drug use. MEDICATIONS: Include Cozaar, Synthroid, Lopressor, cefepime, Toradol, albuterol, morphine, Flomax, Zofran. REVIEW OF SYSTEMS: See HPI. Otherwise, all system reviews are negative. PHYSICAL EXAMINATION: T-max 99.9, T-current 98.4, pulse 86, BP 101/51, satting on room air. GENERAL: She is alert and oriented x 3, in no apparent distress, pleasant and cooperative lady who appears her stated age. She is morbidly obese. Head is normocephalic, atraumatic. Eyes: No sclerae icterus. Extraocular muscles intact. NECK: Supple. Trachea is midline. No JVD. SKIN: Cool and moist. No ulcers, rashes visible. LUNGS: Clear to auscultation. No wheezes, rales or rhonchi. HEART: Regular rhythm. No murmurs, gallops, rubs. ABDOMEN: Obese but soft, nontender, nondistended. GENITOURINARY: No CVA tenderness bilaterally. PELVIS: Not indicating this time. EXTREMITIES: Nontender. No clubbing, cyanosis or edema. NEUROLOGIC: Cranial nerves 2-12 intact. Strength 5/5 in all 4 extremities. LABORATORIES: Show a white count of 14.4, hemoglobin 11.5, hematocrit 33.8, platelet count 162. Sodium 139, potassium , chloride 106, bicarb 25.6, BUN 30, creatinine 1.63. Her urine just showed trace leukocyte esterase. CT abdomen and pelvis without contrast, images reviewed, agree with radiologist's report. The patient has a 7 mm distal left ureteral stone with very mild hydronephrosis. ASSESSMENT: The patient is a 72-year-old female with history of atrial fibrillation and cerebrovascular accident in the past, who presented with acute onset of left flank pain and nausea and was found to have a 7 mm distal obstructing stone with mild hydronephrosis. PLAN: Recommend conservative management at this time. We will keep her on Flomax and antibiotics and monitor for the next 24 hours. If she continues to clinically improve, then the stone could be treated on an outpatient basis. However, if her condition worsens, then would proceed with a procedure while she is in the hospital. We are holding Toradol for now due to her rising creatinine. Thank you for this consult. We will follow along with you. MD ARNAV Coon/AMANDA , 08:18 AM , 08:50 AM
--- NOTE | 2017-10-13 13:54 | HHI.FPPN ---
Subjective Remarks Met patient today. States she is well, other than itchiness since IV tylenol was started. States back pain she had on admission has improved. Eating and drinking well, no other problems. Vitals have been stable since this AM. (Cee Chery MD R1) Objective Vitals Vital Signs Date Time Temp Pulse Resp B/P (MAP) Pulse Ox O2 Delivery O2 Flow Rate FiO2 10/13/17 12:00 98.2 72 20 112/57 (75) 94 10/13/17 08:00 98.4 90 20 129/58 (81) 95 10/13/17 08:00 Room Air 10/13/17 03:49 101/51 (68) 10/13/17 03:40 86 10/13/17 03:36 98.4 79 20 95/52 (66) 92 10/12/17 23:51 Room Air 10/12/17 23:46 99.9 102 20 132/72 (92) 93 10/12/17 23:41 96 10/12/17 20:00 98.8 98 18 140/65 (90) 95 10/12/17 19:43 98 10/12/17 16:30 98.1 92 20 137/67 (90) 94 10/12/17 16:17 98.9 82 20 98 I/O 10/12/17 10/12/17 10/12/17 10/13/17 10/13/17 10/13/17 07:00 15:00 23:00 07:00 15:00 23:00 Intake Total 240 ml Balance 240 ml Intake Oral 240 ml (Cee Chery MD R1) Result Diagram: 10/13/17 03410/13/17 0340 Objective Remarks O. CONSTITUTIONAL/GEN: normally nourished, in NAD. Appears uncomfortable, is scratching at her skin, feels itchy. EYES: conjunctiva normal, PERRLA, EOMI. ENT: Mouth and pharynx normal. LUNGS: occasional expiratory wheeze, generally clear bilaterally CARDIOVASCULAR: RR without murmur or gallop. GI/ABD: soft without masses, without organomegaly. : no CVA tenderness NEURO: No focal deficits. Gait is normal HEME/LYMPH: no bruising, petechia MUSC: Extremities are normal in appearance. PSYCH/MENTAL STATUS: Alert and oriented x 3. (Cee Chery MD R1) A/P Assessment and Plan Patient is a 72 y/o F admitted for obstructing nephrolithiasis (0.7 cm stone obstructing left distal ureter). Urology consulted. Currently receiving IV hydration. Has a history of afib controlled on amlodipine. This has been replaced w/metoprolol to address tachycardia. Home pain meds of norco and tizanidine have been held. Home dose of lasix also held to avoid overstressing kidneys. Urology has seen patient, recommend flomax and Abx and monitoring for next 24 hours. If clinically improved, stone may be treated further outpatient. Will require procedure while in the hospital. Avoid toradol due to rising creatinine. IV Tylenol was started at 0900. Will assume full management tomorrow. Plan to continue monitoring of daily CMP, vitals, and I/Os. (Cee Chery MD R1) Attending Attestation Case reviewed and discussed with the resident team. Agree with plan of care as discussed with me and documented in the resident note. (Quyen Lozada MD) Problem List: (1) Hydronephrosis with obstructing calculus ICD Codes: N13.2 - Hydronephrosis with renal and ureteral calculous obstruction (2) Urosepsis Status: Acute (3) History of CVA (cerebrovascular accident) ICD Codes: Z86.73 - Personal history of transient ischemic attack (TIA), and cerebral infarction without residual deficits Plan: home Plavix and aspirin have been held until kidney stone is passed. (4) COPD (chronic obstructive pulmonary disease) ICD Codes: J44.9 - Chronic obstructive pulmonary disease, unspecified Status: Acute (5) Hypertension ICD Codes: I10 - Essential (primary) hypertension Status: Acute (6) Chronic back pain ICD Codes: M54.9 - Dorsalgia, unspecified; G89.29 - Other chronic pain Status: Acute (7) Hypothyroidism ICD Codes: E03.9 - Hypothyroidism, unspecified Status: Acute (8) GERD (gastroesophageal reflux disease) ICD Codes: K21.9 - Gastro-esophageal reflux disease without esophagitis Status: Acute (9) CAD (coronary artery disease) ICD Codes: I25.10 - Atherosclerotic heart disease of [place] coronary artery without angina pectoris Status: Acute (10) Itching ICD Codes: L29.9 - Pruritus, unspecified Plan: PO diphenhydramine x1 (11) IBS (irritable bowel syndrome) ICD Codes: K58.9 - Irritable bowel syndrome without diarrhea Status: Acute (Cee Chery MD R1) Cee Chery MD R1 Oct 13, 2017 13:54 Quyen Lozada MD Oct 13, 2017 19:16
[2017-10-13] MEDS ORDERED: diphenhydrAMINE HCL 2%/ZINC ACETATE 0.1% CREAM 30 APPLIC/30 GM TUBE TOPICAL PRN (14:00)
[2017-10-13] MEDS ORDERED: diphenhydrAMINE HCL 25 MG CAP PO ONE (14:00)
--- NOTE | 2017-10-13 14:05 | HHI.PR ---
Subjective Remarks "I feel little better but I still have the pain " Afebrile Objective Vitals Vital Signs Date Time Temp Pulse Resp B/P (MAP) Pulse Ox O2 Delivery O2 Flow Rate FiO2 10/13/17 12:00 Room Air 10/13/17 12:00 98.2 72 20 112/57 (75) 94 10/13/17 08:00 98.4 90 20 129/58 (81) 95 10/13/17 08:00 Room Air 10/13/17 03:49 101/51 (68) 10/13/17 03:40 86 10/13/17 03:36 98.4 79 20 95/52 (66) 92 10/12/17 23:51 Room Air 10/12/17 23:46 99.9 102 20 132/72 (92) 93 10/12/17 23:41 96 10/12/17 20:00 98.8 98 18 140/65 (90) 95 10/12/17 19:43 98 10/12/17 16:30 98.1 92 20 137/67 (90) 94 10/12/17 16:17 98.9 82 20 98 I/O 10/12/17 10/12/17 10/12/17 10/13/17 10/13/17 10/13/17 07:00 15:00 23:00 07:00 15:00 23:00 Intake Total 240 ml Balance 240 ml Intake Oral 240 ml Result Diagram: 10/13/17 03410/13/17 034 Objective Remarks GENERAL: This is a well-nourished, well-developed patient, in no apparent distress. SKIN: No rashes, warm and dry HEAD: Atraumatic. Normocephalic. EYES: Pupils equal round and reactive. Extraocular motions intact. No scleral icterus. ENT: Nose without bleeding, or drainage, Airway patent. NECK: Trachea midline. Supple CARDIOVASCULAR: Regular rate and rhythm without murmurs, gallops, or rubs. RESPIRATORY: Fair air entry bilaterally. No wheezes, rales, or rhonchi. GASTROINTESTINAL: Abdomen soft, non-tender, nondistended. Positive bowel sounds MUSCULOSKELETAL: Extremities without clubbing, cyanosis, or edema. Pedal pulses appreciated NEUROLOGICAL: Awake and alert. Moves all extremity. Normal speech.no focal neurological deficit A/P Problem List: (1) Kidney stone on left side ICD Code: N20.0 - Calculus of kidney Status: Acute (2) UTI (urinary tract infection) ICD Code: N39.0 - Urinary tract infection, site not specified Status: Acute (3) Chronic back pain ICD Code: M54.9 - Dorsalgia, unspecified; G89.29 - Other chronic pain Status: Acute Assessment and Plan Obstructing nephrolithiasis 0.7 cm stone obstructing left distal ureter with proximal severe dilation Continue hydration and some Toradol added to morphine doses for pain control Patient appreciate urology consultation recommended continuing current care and monitor, further recommendation to be followed depending on improvement CBC 9 Sinus tachycardia Patient has a history of atrial fibrillation but is currently in sinus rhythm, though tachycardic Hold amlodipine and replaced with metoprolol 12.5 mg twice daily to address rate Follow on telemetry Chronic low back pain This seems to have masked the onset of her kidney stone pain At home she manages her pain with [place] and tizanidine Toradol and morphine for kidney stone pain. Home pain meds held Hypertension Metoprolol added to home dose of Cozaar Amlodipine held Ankle edema Trace edema bilaterally She has a home dose of Lasix but has not used it yet We will give dose of Lasix prior to discharge, but after kidney stone has passed to avoid over stressing the kidneys COPD/emphysema Stable, treat as needed h/o stroke Resume Plavix and aspirin once kidney stone is passed DVT prophylaxis SCDs due to risk of bleed from kidney stone Inderjit Obergon MD Oct 13, 2017 14:05
[2017-10-13] MEDS: SODIUM CHLOR 0.9% 1000 ML INJ 1,000 ML IV SCH (14:22)
[2017-10-13] MEDS: CEFEPIME IV SCH (17:28)
[2017-10-13] MEDS: SODIUM CHLOR 0.9% IV SCH (17:28)
[2017-10-13] MEDS: PANTOPRAZOLE SOD 20 MG DELAYED RELEASE TAB PO SCH (22:09)
[2017-10-14] VITALS (7 sets, daily range): BP systolic 102–160; BP diastolic 55–70; PULSE 20–104; RESP 18–20; TEMP 97.5–99.4; O2SAT 91–95
[2017-10-14] MEDS: MORPHINE SULFATE 4 MG/ML INJ IV PUSH PRN (00:25)
--- NOTE | 2017-10-14 00:33 | EKG ---
Date Performed: 10/12/2017 Time Performed: 11:47:52 PTAGE: 72 years EKG: SINUS TACHYCARDIA MINIMAL ST DEPRESSION ABNORMAL RHYTHM ECG PREVIOUS TRACING : 02/20/2017 08.47 DOCTOR: Anne Gray Interpretating Date/Time 10/14/2017 00:17:29
[2017-10-14] MEDS: ACETAMINOPHEN 1000 MG/100 ML 100 ML IV SCH ×4 (01:32→21:00)
[2017-10-14] MEDS: LEVOTHYROXINE SODIUM 150 MCG TAB PO SCH (05:45)
[2017-10-14 07:43] LABS: AUTOMATED NEUTROPHIL # 7.2 TH/MM3 (1.8-7.7); BASOPHIL # 0.1 TH/MM3 (0-0.2); BASOPHIL % 0.5 % (0.0-2.0); EOSINOPHIL # 0.2 TH/MM3 (0-0.4); EOSINOPHIL % 2.2 % (0.0-4.0); HEMATOCRIT 33.1 % (35.0-46.0); HEMOGLOBIN 11.2 GM/DL (11.6-15.3); LYMPHOCYTE # 1.2 TH/MM3 (1.0-4.8); MEAN CELL VOLUME 84.8 FL (80.0-100.0); MEAN CORPUSCULAR HEMOGLOBIN 28.8 PG (27.0-34.0); MEAN PLATELET VOLUME 8.3 FL (7.0-11.0); MONO % 9.6 % (0.0-8.0); MONOCYTE # 0.9 TH/MM3 (0-0.9); NEUT % 75.7 % (16.0-70.0); PLATELET COUNT 152 TH/MM3 (150-450); RED CELL DISTRIBUTION WIDTH 13.5 % (11.6-17.2); WHITE BLOOD COUNT 9.6 TH/MM3 (4.0-11.0)
[2017-10-14 08:26] LABS: BICARBONATE 23.7 MEQ/L (21.0-32.0); CREATININE 1.93 MG/DL (0.50-1.00)
[2017-10-14] MEDS: METOPROLOL TARTRATE 25 MG TAB PO SCH ×2 (08:44→21:49)
[2017-10-14] MEDS: TAMSULOSIN HCL 0.4 MG CAP PO SCH (08:44)
[2017-10-14] MEDS: LOSARTAN 50 MG TAB PO SCH (08:44)
[2017-10-14] MEDS: BUDESONIDE-FORMOTEROL 80/4.5 MCG INHALER INH SCH ×2 (08:45→21:49)
[2017-10-14] MEDS: SODIUM CHLORIDE 0.9% FLUSH 10 ML FLUSH IV FLUSH SCH ×2 (08:46→21:00)
[2017-10-14] MEDS ORDERED: DOCUSATE SODIUM 50 MG/SENNA 8.6 MG TAB PO ONE (10:15)
[2017-10-14] MEDS: SODIUM CHLOR 0.9% 1000 ML INJ 1,000 ML IV SCH ×2 (11:19→18:26)
--- NOTE | 2017-10-14 11:44 | HHI.FPPN ---
Subjective Remarks No acute events overnight. Vitals stable. Patient is tearful because she says she did not like a way her nurse spoke to her. Wants to go home. Denies any other problems or complaints. (Cee Chery MD R1) Objective Vitals Vital Signs Date Time Temp Pulse Resp B/P (MAP) Pulse Ox O2 Delivery O2 Flow Rate FiO2 10/14/17 08:45 Room Air 10/14/17 08:00 98.5 20 20 160/70 (100) 95 10/14/17 08:00 99 10/14/17 04:00 98.5 94 18 108/55 (72) 94 10/14/17 04:00 81 10/14/17 01:39 Room Air 10/14/17 00:00 95 10/14/17 00:00 97.5 96 18 115/56 (75) 94 10/13/17 20:00 Room Air 10/13/17 20:00 99.2 90 19 124/57 (79) 93 10/13/17 20:00 96 10/13/17 16:00 98.1 78 20 111/58 (75) 93 10/13/17 16:00 Room Air 10/13/17 16:00 78 10/13/17 12:00 77 10/13/17 12:00 Room Air 10/13/17 12:00 98.2 72 20 112/57 (75) 94 I/O 10/13/17 10/13/17 10/13/17 10/14/17 10/14/17 10/14/17 07:00 15:00 23:00 07:00 15:00 23:00 Intake Total 582 ml 200 ml Output Total 200 ml 500 ml Balance 582 ml -200 ml -300 ml Intake Oral 582 ml 200 ml Output Urine Total 200 ml 500 ml (Cee Chery MD R1) Result Diagram: 10/14/17 0725 10/14/17 0725 Objective Remarks O. CONSTITUTIONAL/GEN: normally nourished, in NAD. Appears comfortable but is emotional, no acute distress. EYES: conjunctiva normal, PERRLA, EOMI. ENT: Mouth and pharynx normal. LUNGS: bilateral expiratory wheezes in the lower lobes, generally clear bilaterally CARDIOVASCULAR: RR without murmur or gallop. GI/ABD: soft without masses, without organomegaly. : no CVA tenderness NEURO: No focal deficits. Gait is normal HEME/LYMPH: no bruising, petechia MUSC: Extremities are normal in appearance. PSYCH/MENTAL STATUS: Alert and oriented x 3. (Cee Chery MD R1) A/P Assessment and Plan Patient is a 72 y/o F admitted for obstructing nephrolithiasis (0.7 cm stone obstructing left distal ureter). Urology consulted. Has a history of afib controlled on amlodipine. This has been replaced w/metoprolol to address tachycardia. Home pain meds of norco and tizanidine have been held. Urology following patient, recommended flomax and Abx and monitoring for 24 hours. Given IV Tylenol for pain. Per Nephro recs, patient may D/C mcelroy, switch to PO antibiotics for 10 days course w/appropriate outpatient follow-up. Discharge Planning Possibly today. Patient's kidney function may be further monitored through outpatient assessment and work-up w/close follow-up. However, since her BUN and Cr have increased since yesterday, it is ideally best if she stays in the hospital an additional night for further monitoring and hydration, w/CMP recheck in the AM. This possibility was explained to the patient. However, patient was adamant about going home and very agitated. Will speak w/her nurse about her wishes today after she is able to urinate adequately post-mcelroy catheter removal. (Cee Chery MD R1) Attending Attestation Patient seen and examined with the resident team. Case reviewed and discussed with the resident team. Agree with plan of care as discussed with me and documented in the resident note. (Quyen Lozada MD) Problem List: (1) Hydronephrosis with obstructing calculus ICD Codes: N13.2 - Hydronephrosis with renal and ureteral calculous obstruction Status: Acute Plan: Septic on admission CT showed 0.7 cm stone in distal left ureter w/left hydronephrosis Elevated WBC count on admission, BUN/Cr elevated Urology consulted Urine cx E.coli +, sensitive to Bactrim Improvement s/p 2 days Cefepime Con't Flomax Will D/C w/10 day course of Bactrim, Flomax D/C mcelroy Avoid NSAIDs Appreciate urology recommendations (2) Urosepsis Status: Resolved Plan: See above plan (3) History of CVA (cerebrovascular accident) ICD Codes: Z86.73 - Personal history of transient ischemic attack (TIA), and cerebral infarction without residual deficits Status: Chronic Plan: Continue home plavix and aspirin Atorvastatin held (4) COPD (chronic obstructive pulmonary disease) ICD Codes: J44.9 - Chronic obstructive pulmonary disease, unspecified Status: Chronic Plan: Takes albuterol Q4H at home Duonebs Q6H Symbicort 2 puffs Q12H (5) Hypertension ICD Codes: I10 - Essential (primary) hypertension Status: Chronic Plan: Con't home Losartan, metoprolol Amlodipine held, blood pressures are running low normal (6) Chronic back pain ICD Codes: M54.9 - Dorsalgia, unspecified; G89.29 - Other chronic pain Status: Chronic Plan: Lortab PRN at home for chronic pain IV Tylenol Q6H for pain control (7) Hypothyroidism ICD Codes: E03.9 - Hypothyroidism, unspecified Status: Chronic Plan: Con't home levothyroxine (8) GERD (gastroesophageal reflux disease) ICD Codes: K21.9 - Gastro-esophageal reflux disease without esophagitis Status: Chronic Plan: Con't home Protonix 20 mg PO HS (9) Itching ICD Codes: L29.9 - Pruritus, unspecified Plan: Improved PO diphenhydramine x1 Diphenhydramine cream PRN (10) IBS (irritable bowel syndrome) ICD Codes: K58.9 - Irritable bowel syndrome without diarrhea Status: Chronic Plan: Lomotil Q6H held (11) FEN Status: Acute Plan: Fluids: IVF maintenance @140mls/hr Electrolytes: not indicated Nutrition: reg diet DVT prophy: Plavix restarted,SCDs (Cee Chery MD R1) Cee Chery MD R1 Oct 14, 2017 11:44 Quyen Lozada MD Oct 15, 2017 16:26
--- NOTE | 2017-10-14 12:39 | HHI.PR ---
Subjective Patient symptoms today feels much better. Denies pain. Denies fevers, chills, nausea. Wants to go home. Objective Vital Signs Vital Signs Date Time Temp Pulse Resp B/P (MAP) Pulse Ox O2 Delivery O2 Flow Rate FiO2 10/14/17 08:45 Room Air 10/14/17 08:00 98.5 20 20 160/70 (100) 95 10/14/17 08:00 99 10/14/17 04:00 98.5 94 18 108/55 (72) 94 10/14/17 04:00 81 10/14/17 01:39 Room Air 10/14/17 00:00 95 10/14/17 00:00 97.5 96 18 115/56 (75) 94 10/13/17 20:00 Room Air 10/13/17 20:00 99.2 90 19 124/57 (79) 93 10/13/17 20:00 96 10/13/17 16:00 98.1 78 20 111/58 (75) 93 10/13/17 16:00 Room Air 10/13/17 16:00 78 Intake & Output 10/14/17 10/14/17 07:00 19:00 Intake Total 200 ml Output Total 500 ml Balance -300 ml Intake Oral 200 ml Output Urine Total 500 ml Result Diagram: 10/14/1772410/14/17724 Objective Remarks NAD. A/O x 3 abd obese but soft Medications and IVs Current Medications Medications (Trade) Dose Ordered Sig/Mary Route Start Time Stop Time Status Last Admin Sodium Chloride 1,000 ml @ 140 mls/hr Q7H9M IV 10/12/17 14:00 10/14/17 11:19 (NS Flush) 2 ml UNSCH PRN IV FLUSH 10/12/17 13:30 (NS Flush) 2 ml BID IV FLUSH 10/12/17 21:00 10/13/17 22:11 (Tylenol) 650 mg Q4H PRN PO 10/12/17 13:30 (Zofran Inj) 4 mg Q6H PRN IVP 10/12/17 13:30 (Narcan Inj) 0.4 mg UNSCH PRN IV PUSH 10/12/17 13:30 (Milk Of Magnesia Liq) 30 ml Q12H PRN PO 10/12/17 13:30 (Senokot) 17.2 mg Q12H PRN PO 10/12/17 13:30 (Dulcolax Supp) 10 mg DAILY PRN RECTAL 10/12/17 13:30 (Lactulose Liq) 30 ml DAILY PRN PO 10/12/17 13:30 Cefepime HCl 4000 mg/Sodium Chloride 250 ml @ 10.4 mls/hr Q24H IV 10/12/17 16:00 10/13/17 17:28 (Morphine Inj) 3 mg Q4HR PRN IV PUSH 10/12/17 13:45 10/14/17 00:25 (Albuterol Neb) 2.5 mg Q4HR NEB PRN NEB 10/12/17 16:00 (Symbicort 80-4.5 Mcg Inh) 2 puff Q12HR INH 10/12/17 21:00 10/14/17 08:45 (Synthroid) 150 mcg DAILY@0600 PO 10/13/17 06:00 10/14/17 05:45 (Cozaar) 100 mg DAILY PO 10/13/17 09:00 10/14/17 08:44 (Lopressor) 12.5 mg Q12HR PO 10/12/17 21:00 10/14/17 08:44 (Protonix) 20 mg HS PO 10/12/17 21:00 10/13/17 22:09 (Roxicodone) 10 mg Q4H PRN PO 10/13/17 08:30 10/14/17 07:28 Acetaminophen 100 ml @ 400 mls/hr Q6H IV 10/13/17 09:00 10/13/17 08:54 (Flomax) 0.4 mg DAILY PO 10/13/17 09:00 10/14/17 08:44 (Benadryl 2% Cream) 1 applic TID PRN TOPICAL 10/13/17 14:00 (Duoneb Neb) 1 ampule Q6HR WHILE AWAKE NEB NEB 10/14/17 14:00 (Sally-Colace) 1 tab BID PO 10/14/17 21:00 Assessment and Plan Problem List: (1) Kidney stone on left side ICD Code: N20.0 - Calculus of kidney Status: Acute (2) Acute renal failure ICD Code: N17.9 - Acute kidney failure, unspecified Status: Acute (3) UTI (urinary tract infection) ICD Code: N39.0 - Urinary tract infection, site not specified Status: Acute Assessment and Plan -WBC normal -Recommend switching to PO Antibiotics, such as Bactrim DS, and treat x 10 days. -D/c mcelroy -Ok to d/c home with antibiotics, Flomax. F/U as outpatient -Please call with any questions. Eder Vasques MD Oct 14, 2017 12:39
[2017-10-14] MEDS ORDERED: TAMS5CAP PO (12:40)
[2017-10-14] MEDS: RESP: ALBUTEROL 2.5 MG/IPRATROPIUM 0.5 MG NEB (SCH) NEB ×2 (12:58→19:50)
[2017-10-14] MEDS: ASPIRIN EC 81 MG TABEC PO SCH (18:25)
[2017-10-14] MEDS: CEFEPIME IV SCH (18:25)
[2017-10-14] MEDS: SODIUM CHLOR 0.9% IV SCH (18:25)
[2017-10-14] MEDS: CLOPIDOGREL 75 MG TAB PO SCH (18:26)
[2017-10-14] MEDS: HEPARIN SODIUM - SQ 10,000 UNITS/ML VIAL SQ SCH (18:26)
[2017-10-14] MEDS: DOCUSATE SODIUM 50 MG/SENNA 8.6 MG TAB PO SCH (21:00)
[2017-10-14] MEDS: PANTOPRAZOLE SOD 20 MG DELAYED RELEASE TAB PO SCH (21:48)
[2017-10-15] VITALS: BP 113/56; PULSE 107; RESP 19; TEMP 98.9; O2SAT 95
[2017-10-15] MEDS: ACETAMINOPHEN 1000 MG/100 ML 100 ML IV SCH ×2 (03:00→07:08)
[2017-10-15] MEDS: SODIUM CHLOR 0.9% 1000 ML INJ 1,000 ML IV SCH ×2 (03:57→08:40)
[2017-10-15 04:00] VITALS: BP 115/56; PULSE 89; RESP 19; TEMP 98.8; O2SAT 94
[2017-10-15 04:05] VITALS: PULSE 84
[2017-10-15] MEDS: LEVOTHYROXINE SODIUM 150 MCG TAB PO SCH (05:30)
[2017-10-15] MEDS: HEPARIN SODIUM - SQ 10,000 UNITS/ML VIAL SQ SCH (05:34)
[2017-10-15] MEDS: SODIUM CHLORIDE 0.9% FLUSH 10 ML FLUSH IV FLUSH SCH (07:08)
[2017-10-15] MEDS ORDERED: BACT800T5 PO (07:29)
[2017-10-15] MEDS: RESP: ALBUTEROL 2.5 MG/IPRATROPIUM 0.5 MG NEB (SCH) NEB (07:58)
[2017-10-15 08:00] VITALS: PULSE 98
[2017-10-15 08:07] VITALS: BP 113/68; PULSE 88; RESP 18; TEMP 98.3; O2SAT 93
[2017-10-15] MEDS: BUDESONIDE-FORMOTEROL 80/4.5 MCG INHALER INH SCH (08:40)
[2017-10-15] MEDS: DOCUSATE SODIUM 50 MG/SENNA 8.6 MG TAB PO SCH (08:41)
[2017-10-15] MEDS: ASPIRIN EC 81 MG TABEC PO SCH (08:41)
[2017-10-15] MEDS: TAMSULOSIN HCL 0.4 MG CAP PO SCH (08:41)
[2017-10-15] MEDS: LOSARTAN 50 MG TAB PO SCH (08:41)
[2017-10-15] MEDS: METOPROLOL TARTRATE 25 MG TAB PO SCH (08:42)
[2017-10-15] MEDS: CLOPIDOGREL 75 MG TAB PO SCH (08:42)
[2017-10-15] MEDS ORDERED: [UNRECOGNIZED DRUG - SUPPLY] (09:11)
--- NOTE | 2017-10-15 09:34 | HHI.DCPOC ---
Discharge Care Plan Diagnosis: (1) Hydronephrosis with obstructing calculus (2) UTI (urinary tract infection) (3) Urosepsis Goals to Promote Your Health * To prevent worsening of your condition and complications * To maintain your health at the optimal level Directions to Meet Your Goals Take your medications as prescribed Follow your dietary instruction Follow activity as directed Keep your appointments as scheduled Take your immunizations and boosters as scheduled If your symptoms worsen call your PCP, if no PCP go to Urgent Care Center or Emergency Room Smoking is Dangerous to Your Health. Avoid second hand smoke Call the 24-hour hour crisis hotline for domestic abuse at Cee Chery MD R1 Oct 15, 2017 09:34
--- NOTE | 2017-10-15 09:47 | HHI.FPPN ---
Subjective Remarks Patient did well overnight. No problems urinating after Mcelroy catheter was removed. I/O: 1.9/1.3. No acute events overnight, vitals stable. (Cee Chery MD R1) Objective Vitals Vital Signs Date Time Temp Pulse Resp B/P (MAP) Pulse Ox O2 Delivery O2 Flow Rate FiO2 10/15/17 09:00 Room Air 10/15/17 08:07 98.3 88 18 113/68 (83) 93 10/15/17 08:00 98 10/15/17 06:54 18 10/15/17 04:05 84 10/15/17 04:00 98.8 89 19 115/56 (75) 94 10/15/17 04:00 Room Air 10/15/17 00:00 98.9 107 19 113/56 (75) 95 10/15/17 00:00 Room Air 10/14/17 23:56 91 10/14/17 20:00 98.6 95 20 102/60 (74) 93 10/14/17 18:37 Room Air 10/14/17 16:00 99.3 104 20 124/56 (78) 95 10/14/17 13:00 Room Air 10/14/17 12:00 99.4 86 20 107/55 (72) 91 10/14/17 12:00 86 I/O 10/14/17 10/14/17 10/14/17 10/15/17 10/15/17 10/15/17 07:00 15:00 23:00 07:00 15:00 23:00 Intake Total 200 ml 480 ml 1240 ml Output Total 500 ml 200 ml 1100 ml Balance -300 ml 480 ml -200 ml 140 ml Intake Oral 200 ml 480 ml 240 ml IV Total 1000 ml Output Urine Total 500 ml 200 ml 1100 ml # Bowel Movements 0 0 (Cee Chery MD R1) Result Diagram: 10/14/1772410/14/17 0725 Objective Remarks O. CONSTITUTIONAL/GEN: normally nourished, in NAD. Appears comfortable. EYES: conjunctiva normal, PERRLA, EOMI. ENT: Mouth and pharynx normal. LUNGS: clear bilaterally CARDIOVASCULAR: RR without murmur or gallop. GI/ABD: soft without masses, without organomegaly. NEURO: No focal deficits MUSC: Extremities are normal in appearance. PSYCH/MENTAL STATUS: Alert and oriented x 3. (Cee Chery MD R1) A/P Assessment and Plan Patient is a 72 y/o F admitted for obstructing nephrolithiasis (0.7 cm stone obstructing left distal ureter). Urology consulted. Has a history of afib controlled on amlodipine. This has been replaced w/metoprolol to address tachycardia. Home pain meds of norco and tizanidine have been held. Urology following, recommended flomax and Abx and monitoring for 24 hours. Given IV Tylenol for pain. Sepsis has resolved, as well as pain on admission. Vitals have been stable, patient is able to urinate adequately after mcelroy catheter removed. Will D/C patient w/ PO antibiotics for 10 days course w/appropriate outpatient follow-up. Discharge Planning D/C today with Flomax and Bactrim. Patient will require transportation to home. Appreciate CM assistance. (Cee Chery MD R1) Attending Attestation Patient seen and examined. Case reviewed and discussed with the resident team. Agree with plan of care as discussed with me and documented in the resident note. (Quyen Lozada MD) Problem List: (1) Hydronephrosis with obstructing calculus ICD Codes: N13.2 - Hydronephrosis with renal and ureteral calculous obstruction Status: Acute Plan: Septic on admission CT showed 0.7 cm stone in distal left ureter w/left hydronephrosis Elevated WBC count on admission, BUN/Cr elevated Urology consulted Urine cx E.coli +, sensitive to Bactrim Improvement s/p 2 days Cefepime Mcelroy removed yesterday Con't Flomax D/C w/10 day course of Bactrim, Flomax Avoid NSAIDs Appreciate urology recommendations (2) Urosepsis Status: Resolved Plan: See above plan (3) History of CVA (cerebrovascular accident) ICD Codes: Z86.73 - Personal history of transient ischemic attack (TIA), and cerebral infarction without residual deficits Status: Chronic Plan: Continue home plavix and aspirin, con't statin (4) COPD (chronic obstructive pulmonary disease) ICD Codes: J44.9 - Chronic obstructive pulmonary disease, unspecified Status: Chronic Plan: Takes albuterol Q4H and symbicort at home Duonebs Q6H Symbicort 2 puffs Q12H (5) Hypertension ICD Codes: I10 - Essential (primary) hypertension Status: Chronic Plan: Con't home Losartan, metoprolol (6) Chronic back pain ICD Codes: M54.9 - Dorsalgia, unspecified; G89.29 - Other chronic pain Status: Chronic Plan: Lortab PRN at home for chronic pain Has been receiving roxicodone for pain control Morphine for breakthrough pain (7) Hypothyroidism ICD Codes: E03.9 - Hypothyroidism, unspecified Status: Chronic Plan: Con't home levothyroxine (8) GERD (gastroesophageal reflux disease) ICD Codes: K21.9 - Gastro-esophageal reflux disease without esophagitis Status: Chronic Plan: Con't home Protonix 20 mg PO HS (9) IBS (irritable bowel syndrome) ICD Codes: K58.9 - Irritable bowel syndrome without diarrhea Status: Chronic Plan: Home Lomotil Q6H held, continue at home PRN (10) FEN Status: Acute Plan: Fluids: DC fluids Electrolytes: not indicated Nutrition: reg diet DVT prophy: on Plavix, SCDs (Cee Chery MD R1) Cee Chery MD R1 Oct 15, 2017 09:47 Quyen Lozada MD Oct 15, 2017 16:36
--- NOTE | 2017-10-15 09:48 | HHI.DS ---
Discharge Summary Admission Date Oct 12, 2017 at 13:32 Discharge Date: Oct 15, 2017 Admitting Diagnosis urosepsis, obstructing renal stone (1) Hydronephrosis with obstructing calculus Plan: Septic on admission CT showed 0.7 cm stone in distal left ureter w/left hydronephrosis Elevated WBC count on admission, BUN/Cr elevated Urology consulted Urine cx E.coli +, sensitive to Bactrim Improvement s/p 2 days Cefepime Mcelroy removed yesterday Con't Flomax D/C w/10 day course of Bactrim, Flomax Avoid NSAIDs Appreciate urology recommendations ICD Codes: N13.2 - Hydronephrosis with renal and ureteral calculous obstruction Status: Acute (2) Urosepsis Plan: See above plan Status: Resolved (3) History of CVA (cerebrovascular accident) Plan: Continue home plavix and aspirin, con't statin ICD Codes: Z86.73 - Personal history of transient ischemic attack (TIA), and cerebral infarction without residual deficits Status: Chronic (4) COPD (chronic obstructive pulmonary disease) Plan: Takes albuterol Q4H and symbicort at home Duonebs Q6H Symbicort 2 puffs Q12H ICD Codes: J44.9 - Chronic obstructive pulmonary disease, unspecified Status: Chronic (5) Hypertension Plan: Con't home Losartan, metoprolol ICD Codes: I10 - Essential (primary) hypertension Status: Chronic (6) Chronic back pain Plan: Lortab PRN at home for chronic pain Has been receiving roxicodone for pain control and morphine for breakthrough pain while inpatient ICD Codes: M54.9 - Dorsalgia, unspecified; G89.29 - Other chronic pain Status: Chronic (7) Hypothyroidism Plan: Con't home levothyroxine ICD Codes: E03.9 - Hypothyroidism, unspecified Status: Chronic (8) GERD (gastroesophageal reflux disease) Plan: Con't home Protonix 20 mg PO HS ICD Codes: K21.9 - Gastro-esophageal reflux disease without esophagitis Status: Chronic (9) IBS (irritable bowel syndrome) Plan: Home Lomotil Q6H held, continue at home PRN ICD Codes: K58.9 - Irritable bowel syndrome without diarrhea Status: Chronic Consultants Urology CBC/BMP: 10/14/17 0725 10/14/17 0725 Significant Findings Laboratory Tests Test 10/12/17 11:30 10/12/17 12:10 10/13/17 03:40 10/14/17 07:25 White Blood Count 20.6 TH/MM3 (4.0-11.0) 14.4 TH/MM3 (4.0-11.0) Neutrophils (%) (Auto) 93.4 % (16.0-70.0) 83.6 % (16.0-70.0) 75.7 % (16.0-70.0) Lymphocytes (%) (Auto) 3.0 % (9.0-44.0) 7.2 % (9.0-44.0) Neutrophils # (Auto) 19.3 TH/MM3 (1.8-7.7) 12.1 TH/MM3 (1.8-7.7) Lymphocytes # (Auto) 0.6 TH/MM3 (1.0-4.8) Urine Leukocyte Esterase TRACE (NEG) Urine WBC 7 /hpf (0-5) Urine WBC Clumps RARE (NONE) Creatinine 1.38 MG/DL (0.50-1.00) 1.63 MG/DL (0.50-1.00) 1.93 MG/DL (0.50-1.00) Random Glucose 139 MG/DL (74-106) Aspartate Amino Transf (AST/SGOT) 50 U/L (15-37) Total Bilirubin 1.1 MG/DL (0.2-1.0) Potassium Level 5.4 MEQ/L (3.5-5.1) Estimat Glomerular Filtration Rate 38 ML/MIN (>89) 31 ML/MIN (>89) 26 ML/MIN (>89) Lipase 70 U/L (73-393) Red Blood Count 3.98 MIL/MM3 (4.00-5.30) 3.90 MIL/MM3 (4.00-5.30) Hemoglobin 11.5 GM/DL (11.6-15.3) 11.2 GM/DL (11.6-15.3) Hematocrit 33.8 % (35.0-46.0) 33.1 % (35.0-46.0) Monocytes (%) (Auto) 8.3 % (0.0-8.0) 9.6 % (0.0-8.0) Monocytes # (Auto) 1.2 TH/MM3 (0-0.9) Blood Urea Nitrogen 19 MG/DL (7-18) Test 10/15/17 08:30 PE at Discharge O. CONSTITUTIONAL/GEN: normally nourished, in NAD. Appears comfortable. EYES: conjunctiva normal, PERRLA, EOMI. ENT: Mouth and pharynx normal. LUNGS: clear bilaterally CARDIOVASCULAR: RR without murmur or gallop. GI/ABD: soft without masses, without organomegaly. NEURO: No focal deficits MUSC: Extremities are normal in appearance. PSYCH/MENTAL STATUS: Alert and oriented x 3. Hospital Course Patient is a 72 y/o F admitted for obstructing nephrolithiasis (0.7 cm stone obstructing left distal ureter). Urology consulted. Mcelroy catheter was placed and patient received IV hydration and flomax to flush out stone and placed on IV cefepime for UTI. Has a history of afib controlled on amlodipine. This was replaced w/metoprolol to address tachycardia. Home pain meds of norco and tizanidine were held. Home lasix also held to avoid overstressing kidneys. Urology recommended flomax and Abx and monitoring for 24 hours. With clinical improvement, stabilized renal function per labs, and stable vitals, mcelroy catheter was removed. Patient had adequate urine output and was discharged w/ Bactrum for a course of 10 days and Flomax to continue until follow-up w/ urology and PCP. Pt Condition on Discharge: Stable Discharge Disposition: Discharge Home Discharge Instructions DIET: Follow Instructions for: Heart Healthy Diet Activities you can perform: Regular-No Restrictions Follow up Referrals: Appointment for Follow Up - 1 Week @ UROLOGY PCP Follow-up - 1 Week PCP Follow-up - 1 Week @ PCP Urology - 1 Week New Medications: Sulfamethoxazole-Trimethoprim (Bactrim DS) 800-160 Mg Tab 1 TAB PO BID for Infection, #20 TAB 0 Refills [Urine Strainer] () UNIT .XX with every void for kidney stone, #1 Tamsulosin (Flomax) 0.4 Mg Cap 0.4 MG PO DAILY for Bladder Spasm for 30 Days, #30 CAP Continued Medications: Albuterol Neb (Albuterol Neb) 2.5 Mg/3 Ml Neb 2.5 MG NEB Q4HR NEB PRN for SHORTNESS OF BREATH, #60 NEBULE 5 Refills Aspirin (Aspirin 81) 81 Mg Tabdr 81 MG PO DAILY, TAB 0 Refills Atorvastatin (Atorvastatin) 20 Mg Tab 20 MG PO DAILY, #30 TAB 5 Refills Budesonide-Formoterol Inh (Symbicort Inh) 80-4.5 Mcg/Act Aero 2 PUFF INH Q12HR for Asthma Management, #1 INHALER 6 Refills Clopidogrel (Plavix) 75 Mg Tab 75 MG PO DAILY for Blood Clot Prevention, #31 TAB 6 Refills Diphenoxylate-Atropine (Lomotil) 2.5-0.025 Mg Tab 1 TAB PO Q6H PRN for DIARRHEA, #30 TAB 0 Refills Hydrocodone-Acetaminophen (Lortab) 7.5-325 Mg Tab 1 TAB PO TID PRN for PAIN, TAB 0 Refills Levothyroxine (Levothyroxine) 150 Mcg Tab 150 MCG PO DAILY for Thyroid, #30 TAB 6 Refills Losartan (Losartan) 100 Mg Tab 100 MG PO DAILY for Blood Pressure Management, #30 TAB 6 Refills Omeprazole (Omeprazole) 20 Mg Tab 20 MG PO HS, #30 CAP 6 Refills Triamcinolone Topical (Triamcinolone Topical) 0.5 % Oint 1 APPLIC TOPICAL BID for Inflammation, #15 GM 0 Refills Discontinued Medications: Amlodipine (Amlodipine) 5 Mg Tab 5 MG PO DAILY for Blood Pressure Management, #30 TAB 5 Refills Potassium Chloride ER (K-Tab) 10 Meq Tab 10 MEQ PO BID for Electrolyte Replacement, #60 TAB 6 Refills Tizanidine (Tizanidine) 2 Mg Tab 2 MG PO BID for Muscle Spasm, #30 TAB 0 Refills Cee Chery MD R1 Oct 15, 2017 09:48
[2017-10-15 09:53] LABS: AUTOMATED NEUTROPHIL # 5.8 TH/MM3 (1.8-7.7); BASOPHIL % 0.3 % (0.0-2.0); EOSINOPHIL # 0.1 TH/MM3 (0-0.4); EOSINOPHIL % 1.9 % (0.0-4.0); HEMATOCRIT 32.1 % (35.0-46.0); HEMOGLOBIN 10.8 GM/DL (11.6-15.3); LYMPH % 10.8 % (9.0-44.0); LYMPHOCYTE # 0.8 TH/MM3 (1.0-4.8); MEAN CELL VOLUME 85.3 FL (80.0-100.0); MEAN CORPUSCULAR HEMOGLOBIN 28.8 PG (27.0-34.0); MEAN CORPUSCULAR HGB CONC 33.7 % (32.0-36.0); MEAN PLATELET VOLUME 8.6 FL (7.0-11.0); MONO % 11.1 % (0.0-8.0); MONOCYTE # 0.8 TH/MM3 (0-0.9); NEUT % 75.9 % (16.0-70.0); PLATELET COUNT 163 TH/MM3 (150-450); RED BLOOD COUNT 3.76 MIL/MM3 (4.00-5.30); RED CELL DISTRIBUTION WIDTH 13.5 % (11.6-17.2); WHITE BLOOD COUNT 7.6 TH/MM3 (4.0-11.0)
[2017-10-15 10:24] LABS: BICARBONATE 23.1 MEQ/L (21.0-32.0); CALCIUM 8.9 MG/DL (8.5-10.1); CREATININE 1.59 MG/DL (0.50-1.00)
[2017-10-15 12:18] VITALS: BP 154/87; PULSE 86; RESP 18; TEMP 98.3; O2SAT 94
== END 2017-10-15 13:04 | disposition home or self-care (01) | DRG 694 ==
LOC: NEPD 11:00 → NEDA 13:31 → OBSVTOIN 13:32 → N04A 16:28
PROVIDERS: ADMIT Family Medicine; ATTEND Family Medicine
DX: N13.2 Hydronephrosis with renal and ureteral calculous obstruction (principal); N39.0 Urinary tract infection, site not specified; J43.9 Emphysema, unspecified; I48.91 Unspecified atrial fibrillation; Z68.42 Body mass index [BMI] 45.0-49.9, adult; B96.20 Unspecified Escherichia coli [E. coli] as the cause of diseases classified elsewhere; Z79.02 Long term (current) use of antithrombotics/antiplatelets; E66.01 Morbid (severe) obesity due to excess calories; N20.0 Calculus of kidney; I10 Essential (primary) hypertension; G89.29 Other chronic pain; M54.9 Dorsalgia, unspecified; Z79.82 Long term (current) use of aspirin; E03.9 Hypothyroidism, unspecified; K21.9 Gastro-esophageal reflux disease without esophagitis; K58.0 Irritable bowel syndrome with diarrhea; M81.0 Age-related osteoporosis without current pathological fracture; I25.10 Atherosclerotic heart disease of native coronary artery without angina pectoris; L29.9 Pruritus, unspecified; Z87.891 Personal history of nicotine dependence; Z86.73 Personal history of transient ischemic attack (TIA), and cerebral infarction without residual deficits
CPT/HCPCS: 74176; 80048; 80053; 81001; 83605; 83690; 85025; 85610; 85730; 87040; 87077; 87086; 87186; 87804; 93005; 94640; 94664; 96361; 96365; 96375; J0131; J0692; J1644; J1885; J2270; J2405; J7030; J7050